=== PATIENT | male | born 1965 | race African-American/Black ===

== ENCOUNTER 2019-05-21 15:23 | Inpatient (IN) | payer MEDICAID ==
[~2019-05-21] VITALS: Ht 177.8 cm; Wt 84.8 kg
[2019-05-21 15:30] VITALS: BP_SYST 116
[2019-05-21] MEDS ORDERED: cefTRIAXone 1 GM in LIDOCAINE 1%, 20 ML MDV 2.1 ML IM ONE (16:00)
[2019-05-21] MEDS ORDERED: LIDOCAINE 1% 10 MG/ML, 20 ML MDV IJ ONE (16:00)
[2019-05-21] MEDS ORDERED: KETOROLAC TROMETHAMINE 60 MG/2 ML VIAL IM ONE (16:00)
[2019-05-21] MEDS ORDERED: ONDANSETRON HCL 4 MG/2 ML VIAL IVP ONE (16:15)
[2019-05-21] MEDS ORDERED: MORPHINE 2 MG/ML INJ. SYRINGE IVP ONE (16:15)
[2019-05-21] MEDS ORDERED: NS 1000 ML IV.SOLN IV ONE (16:15)
[2019-05-21] MEDS ORDERED: KETOROLAC TROMETHAMINE 30 MG VIAL IVP ONE (16:15)
[2019-05-21] MEDS ORDERED: INSULIN REGULAR, HUMAN 10 UNITS/0.1 ML INJ IVP ONE (16:15)
[2019-05-21] MEDS ORDERED: PIPERACILLIN/TAZO 3.38 GM in D5W 50 ML IV ONE (16:15)
[2019-05-21] MEDS ORDERED: PIPERACILLIN/TAZOBACTAM 3.375 GM/VIAL (ZOSYN) IV ONE (16:39)
[2019-05-21] MEDS ORDERED: ONDANSETRON HCL 4 MG/2 ML VIAL ONE (16:51)
[2019-05-21 17:45] LABS: BASOPHILS % (AUTO) 0.3 % (0.0-2.0); EOSINOPHILS % (AUTO) 0.1 % (0.0-4.0); HEMATOCRIT 48.5 % (36-54); LYMPHOCYTES # (AUTO) 1.9 K/uL (1.0-5.5); LYMPHOCYTES % (AUTO) 18.6 % (20.5-51.5); MEAN CORPUSCULAR HEMOGLOBIN 29 pg (27-31); MEAN CORPUSCULAR HGB CONC 33 % (32-36); MEAN CORPUSCULAR VOLUME 88 fL (79.0-98.0); MONOCYTES # (AUTO) 0.7 K/uL (0.0-1.0); MONOCYTES % (AUTO) 6.8 % (1.7-9.3); NEUTROPHILS # (AUTO) 7.7 K/uL (1.8-7.7); NEUTROPHILS % (AUTO) 74.2 % (40.0-70.0); PLATELET COUNT (AUTO) 267 K/uL (130-430); RED BLOOD CELL COUNT(AUTO) 5.53 MIL/uL (4.2-6.2); WHITE BLOOD COUNT (AUTO) 10.4 K/uL (4.8-10.8)
[2019-05-21 18:16] LABS: CALCIUM 9.1 mg/dL (8.4-11.0); CREATININE 2.03 mg/dL (0.55-1.30); POTASSIUM 4.9 mmol/L (3.5-5.1)
[2019-05-21] MEDS ORDERED: D5W 1,000 ML IV PRN (21:22)
[2019-05-21 21:30] VITALS: BP_SYST 102
[2019-05-21] MEDS ORDERED: DEXTROSE 50% JECT 50 ML DISP.SYRIN IVP PRN (21:30)
[2019-05-21] MEDS ORDERED: HYDROcodone/ACETAMIN 5-325 MG TAB (NORCO/ VICODIN) PO PRN (21:30)
[2019-05-21] MEDS ORDERED: LORazepam 2 MG/ML VIAL IVP PRN (21:30)
[2019-05-21] MEDS ORDERED: GLUCOSE 15 GM GEL (in 37.5 GM TUBE) PO PRN (21:30)
[2019-05-21] MEDS ORDERED: ACETAMINOPHEN 325 MG TABLET PO PRN (21:30)
[2019-05-21] MEDS ORDERED: HYDROcodone/ACETAMIN 10-325 MG TAB PO PRN (21:30)
[2019-05-21] MEDS ORDERED: ONDANSETRON HCL 4 MG/2 ML VIAL IVP PRN (21:30)
[2019-05-21] MEDS ORDERED: cefTRIAXone 1 GM IVPB PREMIX 50 ML IV ONE (22:54)
[2019-05-21] MEDS: NORMAL SALINE 5 ML DISP.SYRIN IVF SCH ×2 (23:30→23:33)
[2019-05-21] MEDS: cefTRIAXone 1 GM IVPB PREMIX 50 ML IV SCH (23:33)
[2019-05-21] MEDS: INSULIN REGULAR, HUMAN 100 UNITS/ML, 10 ML VIAL (humuLIN R) SUBCUT PRN (23:45)
[2019-05-22 03:00] VITALS: BP_SYST 132
[2019-05-22] MEDS: NORMAL SALINE 5 ML DISP.SYRIN IVF SCH ×6 (06:00→21:12)
[2019-05-22] MEDS: INSULIN REGULAR, HUMAN 100 UNITS/ML, 10 ML VIAL (humuLIN R) SUBCUT PRN ×2 (06:15→11:31)
[2019-05-22 07:51] LABS: BASOPHILS % (AUTO) 0.3 % (0.0-2.0); EOSINOPHILS # (AUTO) 0.1 K/uL (0.0-0.4); EOSINOPHILS % (AUTO) 0.7 % (0.0-4.0); HEMATOCRIT 41.9 % (36-54); HEMOGLOBIN 14.2 g/dL (14.0-18.0); LYMPHOCYTES # (AUTO) 2.3 K/uL (1.0-5.5); LYMPHOCYTES % (AUTO) 25.5 % (20.5-51.5); MEAN CORPUSCULAR HEMOGLOBIN 29 pg (27-31); MEAN CORPUSCULAR HGB CONC 34 % (32-36); MEAN CORPUSCULAR VOLUME 86 fL (79.0-98.0); MONOCYTES # (AUTO) 0.7 K/uL (0.0-1.0); NEUTROPHILS % (AUTO) 65.5 % (40.0-70.0); PLATELET COUNT (AUTO) 238 K/uL (130-430); RED BLOOD CELL COUNT(AUTO) 4.85 MIL/uL (4.2-6.2); RED CELL DISTRIBUTION WIDTH 12.8 % (9.0-15.0); WHITE BLOOD COUNT (AUTO) 9.2 K/uL (4.8-10.8)
[2019-05-22 07:54] LABS: CALCIUM 8.5 mg/dL (8.4-11.0); CREATININE 1.02 mg/dL (0.55-1.30); POTASSIUM 3.5 mmol/L (3.5-5.1)
[2019-05-22 08:00] VITALS: BP_SYST 156
[2019-05-22] MEDS ORDERED: metFORMIN HCL 500 MG TABLET PO SCH (08:00)
[2019-05-22] MEDS: PIOGLITAZONE HCL 15 MG TABLET PO SCH (08:05)
[2019-05-22] MEDS: LISINOPRIL 10 MG TABLET (PRINIVIL) PO SCH (08:34)
[2019-05-22] MEDS: HYDROCHLOROTHIAZIDE 25 MG TABLET (HCTZ) PO SCH (08:34)
[2019-05-22 12:46] VITALS: BP_SYST 146
[2019-05-22] MEDS: VANCOMYCIN HCL 1,000 MG in NS 250 ML IV SCH (14:30)
[2019-05-22] MEDS ORDERED: GLIMEPIRIDE 2 MG TABLET PO ONE (14:30)
[2019-05-22] MEDS ORDERED: DEXTROSE 50% JECT 50 ML DISP.SYRIN IVP PRN (14:45)
[2019-05-22 16:34] VITALS: BP_SYST 114
[2019-05-22] MEDS: metFORMIN HCL 500 MG TABLET PO SCH (17:16)
[2019-05-22] MEDS: INSULIN LISPRO SLIDING SCALE 100 UNITS/ML VIAL (humaLOG) SUBCUT PRN ×2 (17:18→21:11)
[2019-05-22 19:15] VITALS: BP_SYST 119
[2019-05-22] MEDS: cefTRIAXone 1 GM IVPB PREMIX 50 ML IV SCH (21:07)
[2019-05-23 00:28] VITALS: BP_SYST 113
[2019-05-23] MEDS: VANCOMYCIN HCL 1,000 MG in NS 250 ML IV SCH ×2 (01:56→13:07)
[2019-05-23 05:35] LABS: BASOPHILS % (AUTO) 0.2 % (0.0-2.0); EOSINOPHILS # (AUTO) 0.1 K/uL (0.0-0.4); HEMATOCRIT 41.6 % (36-54); HEMOGLOBIN 14.1 g/dL (14.0-18.0); LYMPHOCYTES # (AUTO) 2.9 K/uL (1.0-5.5); LYMPHOCYTES % (AUTO) 38.7 % (20.5-51.5); MEAN CORPUSCULAR HEMOGLOBIN 29 pg (27-31); MEAN CORPUSCULAR HGB CONC 34 % (32-36); MEAN CORPUSCULAR VOLUME 86 fL (79.0-98.0); MONOCYTES # (AUTO) 0.6 K/uL (0.0-1.0); MONOCYTES % (AUTO) 7.5 % (1.7-9.3); NEUTROPHILS % (AUTO) 52.6 % (40.0-70.0); PLATELET COUNT (AUTO) 249 K/uL (130-430); RED BLOOD CELL COUNT(AUTO) 4.83 MIL/uL (4.2-6.2); RED CELL DISTRIBUTION WIDTH 12.5 % (9.0-15.0); WHITE BLOOD COUNT (AUTO) 7.5 K/uL (4.8-10.8)
[2019-05-23 05:45] LABS: ALBUMIN 2.6 g/dL (3.4-4.8); C-REACTIVE PROTEIN QUANT 4.2 mg/dL (0-0.5); CALCIUM 8.7 mg/dL (8.4-11.0); CREATININE 1.07 mg/dL (0.55-1.30); PHOSPHORUS 3.3 mg/dL (2.7-4.5); POTASSIUM 3.7 mmol/L (3.5-5.1); TOTAL BILIRUBIN 0.5 mg/dL (0.0-1.0)
[2019-05-23] MEDS: NORMAL SALINE 5 ML DISP.SYRIN IVF SCH ×6 (06:00→21:13)
[2019-05-23] MEDS: GLIMEPIRIDE 2 MG TABLET PO SCH (06:08)
[2019-05-23 07:48] LABS: ERYTHROCYTE SEDIMENTATION RATE 51 MM/HR (0-15)
[2019-05-23 07:53] VITALS: BP_SYST 122
[2019-05-23] MEDS: LISINOPRIL 10 MG TABLET (PRINIVIL) PO SCH (08:19)
[2019-05-23] MEDS: HYDROCHLOROTHIAZIDE 25 MG TABLET (HCTZ) PO SCH (08:19)
[2019-05-23] MEDS: metFORMIN HCL 500 MG TABLET PO SCH ×2 (08:19→17:30)
[2019-05-23] MEDS: PIOGLITAZONE HCL 15 MG TABLET PO SCH (08:19)
[2019-05-23 11:28] VITALS: BP_SYST 134
[2019-05-23] MEDS: INSULIN LISPRO SLIDING SCALE 100 UNITS/ML VIAL (humaLOG) SUBCUT PRN ×3 (12:04→21:22)
[2019-05-23 14:46] LABS: INR 0.9 (0.80-1.20); PROTHROMBIN TIME 9.2 SECS (9.5-12.5)
[2019-05-23 15:30] VITALS: BP_SYST 121
[2019-05-23 20:00] VITALS: BP_SYST 108
[2019-05-23] MEDS: cefTRIAXone 1 GM IVPB PREMIX 50 ML IV SCH (21:12)
[2019-05-24 00:50] VITALS: BP_SYST 110
[2019-05-24] MEDS: VANCOMYCIN HCL 1,000 MG in NS 250 ML IV SCH ×3 (01:53→21:11)
[2019-05-24] MEDS: NORMAL SALINE 5 ML DISP.SYRIN IVF SCH ×6 (06:00→21:11)
[2019-05-24] MEDS: GLIMEPIRIDE 2 MG TABLET PO SCH (06:36)
[2019-05-24] MEDS: INSULIN LISPRO SLIDING SCALE 100 UNITS/ML VIAL (humaLOG) SUBCUT PRN ×3 (06:38→20:27)
[2019-05-24 07:20] LABS: BASOPHILS % (AUTO) 0.2 % (0.0-2.0); EOSINOPHILS # (AUTO) 0.1 K/uL (0.0-0.4); EOSINOPHILS % (AUTO) 1.2 % (0.0-4.0); HEMATOCRIT 41.4 % (36-54); HEMOGLOBIN 13.9 g/dL (14.0-18.0); LYMPHOCYTES # (AUTO) 2.4 K/uL (1.0-5.5); LYMPHOCYTES % (AUTO) 38.3 % (20.5-51.5); MEAN CORPUSCULAR HEMOGLOBIN 29 pg (27-31); MEAN CORPUSCULAR HGB CONC 34 % (32-36); MEAN CORPUSCULAR VOLUME 86 fL (79.0-98.0); MONOCYTES # (AUTO) 0.5 K/uL (0.0-1.0); MONOCYTES % (AUTO) 8.5 % (1.7-9.3); NEUTROPHILS # (AUTO) 3.2 K/uL (1.8-7.7); NEUTROPHILS % (AUTO) 51.8 % (40.0-70.0); PLATELET COUNT (AUTO) 276 K/uL (130-430); RED CELL DISTRIBUTION WIDTH 12.5 % (9.0-15.0); WHITE BLOOD COUNT (AUTO) 6.2 K/uL (4.8-10.8)
[2019-05-24 07:25] LABS: C-REACTIVE PROTEIN QUANT 1.9 mg/dL (0-0.5); CREATININE 1.04 mg/dL (0.55-1.30); POTASSIUM 3.9 mmol/L (3.5-5.1)
[2019-05-24] MEDS: PIOGLITAZONE HCL 15 MG TABLET PO SCH (08:00)
[2019-05-24] MEDS: metFORMIN HCL 500 MG TABLET PO SCH ×2 (08:00→17:10)
[2019-05-24] MEDS: HYDROCHLOROTHIAZIDE 25 MG TABLET (HCTZ) PO SCH (08:01)
[2019-05-24] MEDS: LISINOPRIL 10 MG TABLET (PRINIVIL) PO SCH (08:01)
[2019-05-24 08:38] LABS: ERYTHROCYTE SEDIMENTATION RATE 46 MM/HR (0-15)
[2019-05-24 12:34] VITALS: BP_SYST 127
[2019-05-24] MEDS: SILVER 44.4 ML GEL.ER.ML. TP SCH (13:50)
[2019-05-24 16:19] VITALS: BP_SYST 121
[2019-05-24 20:00] VITALS: BP_SYST 118
[2019-05-24] MEDS: cefTRIAXone 1 GM IVPB PREMIX 50 ML IV SCH (20:27)
[2019-05-25] VITALS: BP_SYST 145
[2019-05-25] MEDS: GLIMEPIRIDE 2 MG TABLET PO SCH (05:58)
[2019-05-25] MEDS: NORMAL SALINE 5 ML DISP.SYRIN IVF SCH ×4 (05:58→21:50)
[2019-05-25] MEDS: INSULIN LISPRO SLIDING SCALE 100 UNITS/ML VIAL (humaLOG) SUBCUT PRN ×3 (05:59→21:52)
[2019-05-25] MEDS: VANCOMYCIN HCL 1,000 MG in NS 250 ML IV SCH ×3 (05:59→21:46)
[2019-05-25 07:48] LABS: CALCIUM 9.3 mg/dL (8.4-11.0); CREATININE 0.99 mg/dL (0.55-1.30); POTASSIUM 3.9 mmol/L (3.5-5.1)
[2019-05-25 07:50] LABS: BASOPHILS % (AUTO) 0.5 % (0.0-2.0); EOSINOPHILS % (AUTO) 0.8 % (0.0-4.0); HEMOGLOBIN 13.6 g/dL (14.0-18.0); LYMPHOCYTES % (AUTO) 32.9 % (20.5-51.5); MEAN CORPUSCULAR HEMOGLOBIN 30 pg (27-31); MEAN CORPUSCULAR HGB CONC 34 % (32-36); MEAN CORPUSCULAR VOLUME 87 fL (79.0-98.0); MONOCYTES # (AUTO) 0.4 K/uL (0.0-1.0); MONOCYTES % (AUTO) 7.3 % (1.7-9.3); NEUTROPHILS # (AUTO) 3.5 K/uL (1.8-7.7); NEUTROPHILS % (AUTO) 58.5 % (40.0-70.0); PLATELET COUNT (AUTO) 275 K/uL (130-430); RED BLOOD CELL COUNT(AUTO) 4.59 MIL/uL (4.2-6.2); RED CELL DISTRIBUTION WIDTH 12.4 % (9.0-15.0)
[2019-05-25 08:06] LABS: C-REACTIVE PROTEIN QUANT 1.1 mg/dL (0-0.5)
[2019-05-25 08:27] LABS: ERYTHROCYTE SEDIMENTATION RATE 49 MM/HR (0-15)
[2019-05-25] MEDS: LISINOPRIL 10 MG TABLET (PRINIVIL) PO SCH (08:40)
[2019-05-25] MEDS: HYDROCHLOROTHIAZIDE 25 MG TABLET (HCTZ) PO SCH (08:40)
[2019-05-25] MEDS: metFORMIN HCL 500 MG TABLET PO SCH ×2 (08:41→17:28)
[2019-05-25] MEDS: PIOGLITAZONE HCL 15 MG TABLET PO SCH (08:41)
[2019-05-25] MEDS: SILVER 44.4 ML GEL.ER.ML. TP SCH (08:41)
[2019-05-25 08:42] VITALS: BP_SYST 152
[2019-05-25 12:36] VITALS: BP_SYST 130
[2019-05-25 17:05] VITALS: BP_SYST 127; BP_SYST 136
[2019-05-25 20:00] VITALS: BP_SYST 133
[2019-05-25] MEDS: cefTRIAXone 1 GM IVPB PREMIX 50 ML IV SCH (20:50)
[2019-05-26 00:21] VITALS: BP_SYST 163
[2019-05-26 00:36] VITALS: BP_SYST 148
[2019-05-26] MEDS: VANCOMYCIN HCL 1,000 MG in NS 250 ML IV SCH ×2 (06:06→13:18)
[2019-05-26] MEDS: NORMAL SALINE 5 ML DISP.SYRIN IVF SCH ×2 (06:07→13:18)
[2019-05-26] MEDS: GLIMEPIRIDE 2 MG TABLET PO SCH (06:07)
[2019-05-26] MEDS: INSULIN LISPRO SLIDING SCALE 100 UNITS/ML VIAL (humaLOG) SUBCUT PRN ×2 (06:12→11:36)
[2019-05-26 06:56] LABS: BASOPHILS % (AUTO) 0.4 % (0.0-2.0); EOSINOPHILS # (AUTO) 0.1 K/uL (0.0-0.4); EOSINOPHILS % (AUTO) 1.1 % (0.0-4.0); HEMOGLOBIN 13.9 g/dL (14.0-18.0); LYMPHOCYTES % (AUTO) 33.3 % (20.5-51.5); MEAN CORPUSCULAR HEMOGLOBIN 30 pg (27-31); MEAN CORPUSCULAR HGB CONC 34 % (32-36); MEAN CORPUSCULAR VOLUME 87 fL (79.0-98.0); MONOCYTES # (AUTO) 0.5 K/uL (0.0-1.0); MONOCYTES % (AUTO) 8.6 % (1.7-9.3); NEUTROPHILS # (AUTO) 3.3 K/uL (1.8-7.7); NEUTROPHILS % (AUTO) 56.6 % (40.0-70.0); PLATELET COUNT (AUTO) 291 K/uL (130-430); RED BLOOD CELL COUNT(AUTO) 4.71 MIL/uL (4.2-6.2); RED CELL DISTRIBUTION WIDTH 12.3 % (9.0-15.0); WHITE BLOOD COUNT (AUTO) 5.9 K/uL (4.8-10.8)
[2019-05-26 07:00] LABS: C-REACTIVE PROTEIN QUANT 0.7 mg/dL (0-0.5); CALCIUM 9.7 mg/dL (8.4-11.0); CREATININE 0.98 mg/dL (0.55-1.30); POTASSIUM 4.1 mmol/L (3.5-5.1)
[2019-05-26 08:02] VITALS: BP_SYST 143
[2019-05-26 08:19] LABS: ERYTHROCYTE SEDIMENTATION RATE 38 MM/HR (0-15)
[2019-05-26] MEDS: HYDROCHLOROTHIAZIDE 25 MG TABLET (HCTZ) PO SCH (08:26)
[2019-05-26] MEDS: SILVER 44.4 ML GEL.ER.ML. TP SCH (08:26)
[2019-05-26] MEDS: PIOGLITAZONE HCL 15 MG TABLET PO SCH (08:27)
[2019-05-26] MEDS: metFORMIN HCL 500 MG TABLET PO SCH (08:27)
[2019-05-26] MEDS: LISINOPRIL 10 MG TABLET (PRINIVIL) PO SCH (08:27)
[2019-05-26 11:22] VITALS: BP_SYST 156
== END 2019-05-26 14:55 | disposition left against medical advice (07) | DRG 344 ==
LOC: SED 15:23 → SMU 19:24
PROVIDERS: ADMIT Preventive Medicine Preventive Medicine/Occupational Environmental Medicine; ATTEND Preventive Medicine Preventive Medicine/Occupational Environmental Medicine
PROC: 0X9J0ZZ Drainage of Right Hand, Open Approach (ICD-10-PCS; principal; 2019-05-21)
PROC: 02HV33Z Insertion of Infusion Device into Superior Vena Cava, Percutaneous Approach (ICD-10-PCS; 2019-05-21)
DX: M86.8X4 Other osteomyelitis, hand (principal); N17.0 Acute kidney failure with tubular necrosis; W57.XXXA Bitten or stung by nonvenomous insect and other nonvenomous arthropods, initial encounter; E11.65 Type 2 diabetes mellitus with hyperglycemia; E87.1 Hypo-osmolality and hyponatremia; L03.011 Cellulitis of right finger; L02.511 Cutaneous abscess of right hand; E86.0 Dehydration; B95.62 Methicillin resistant Staphylococcus aureus infection as the cause of diseases classified elsewhere; S60.361A Insect bite (nonvenomous) of right thumb, initial encounter; Y93.9 Activity, unspecified; Y92.89 Other specified places as the place of occurrence of the external cause; Y99.8 Other external cause status; Z79.84 Long term (current) use of oral hypoglycemic drugs; Z83.3 Family history of diabetes mellitus; Z87.891 Personal history of nicotine dependence; E44.0 Moderate protein-calorie malnutrition; B95.7 Other staphylococcus as the cause of diseases classified elsewhere; Z16.30 Resistance to unspecified antimicrobial drugs
CPT/HCPCS: 36415; 71045; 73140-TC; 73221; 80048; 80053; 80202-TC; 82009-TC; 82962; 83036; 83605; 83735-TC; 84100-TC; 85025; 85610-TC; 85651-TC; 85730-TC; 86140; 87040-TC; 87070-TC; 87186-TC; 96365; 96375; 99285; A6261; C1751; J0696; J1815; J1885; J2001; J2270; J2405; J2543; J3370; J7030; J7050

== ENCOUNTER 2019-05-27 17:22 | Inpatient (IN) | payer MEDICAID, OTHER ==
[~2019-05-27] VITALS: Ht 177.8 cm; Wt 88.0 kg
[2019-05-27 17:33] VITALS: BP_SYST 162
--- NOTE | 2019-05-27 17:37 | NUR ---
Patient to ER bed 05 to gown for evaluation. Side rails up.
--- NOTE | 2019-05-27 17:45 | NUR ---
Patient came into ED due to right thumb pain. Patient states that he came into the ED a week ago but signed out AMA. Now he's back because the pain and swelling has not gone away. Patient has hx of DM, and HT. Pt is A&Ox4. Pt denies SOB. Patient reports Nausea, denies V/D. Will continue to monitor.
--- NOTE | 2019-05-27 17:55 | NUR ---
OWEN Tom at bedside examining patient.
[2019-05-27] MEDS ORDERED: hydrALAZINE HCL 20 MG/ML VIAL IVP ONE (18:15)
[2019-05-27] MEDS ORDERED: VANCOMYCIN HCL 1,000 MG in NS 250 ML IV ONE (18:15)
[2019-05-27] MEDS ORDERED: PIPERACILLIN/TAZO 3.375 GM in NS 50 ML IV ONE (18:15)
[2019-05-27] MEDS ORDERED: NACL 0.9% 1,000 ML IV ONE ×2 (18:15→18:45)
[2019-05-27] MEDS ORDERED: INSULIN REGULAR, HUMAN 100 UNITS/ML, 10 ML VIAL SUBCUT ONE (18:15)
[2019-05-27] MEDS ORDERED: VANCOMYCIN HCL 1000 MG/VIAL IV ONE (18:25)
[2019-05-27] MEDS ORDERED: PIPERACILLIN/TAZOBACTAM 3.375 GM/VIAL (ZOSYN) IV ONE (18:25)
[2019-05-27 18:27] LABS: ALBUMIN 3.4 g/dL (3.4-4.8); CALCIUM 9.6 mg/dL (8.4-11.0); CREATININE 1.59 mg/dL (0.55-1.30); POTASSIUM 4.4 mmol/L (3.5-5.1); TOTAL BILIRUBIN 0.3 mg/dL (0.0-1.0)
[2019-05-27] MEDS ORDERED: INSULIN REGULAR, HUMAN 10 UNITS/0.1 ML INJ ONE (18:27)
[2019-05-27 18:29] LABS: BASOPHILS % (AUTO) 0.4 % (0.0-2.0); EOSINOPHILS # (AUTO) 0.1 K/uL (0.0-0.4); EOSINOPHILS % (AUTO) 0.8 % (0.0-4.0); HEMATOCRIT 39.1 % (36-54); HEMOGLOBIN 13.1 g/dL (14.0-18.0); LYMPHOCYTES # (AUTO) 2.1 K/uL (1.0-5.5); LYMPHOCYTES % (AUTO) 29.5 % (20.5-51.5); MEAN CORPUSCULAR HEMOGLOBIN 30 pg (27-31); MEAN CORPUSCULAR HGB CONC 34 % (32-36); MEAN CORPUSCULAR VOLUME 88 fL (79.0-98.0); MONOCYTES # (AUTO) 0.6 K/uL (0.0-1.0); MONOCYTES % (AUTO) 8.7 % (1.7-9.3); NEUTROPHILS # (AUTO) 4.3 K/uL (1.8-7.7); NEUTROPHILS % (AUTO) 60.6 % (40.0-70.0); PLATELET COUNT (AUTO) 319 K/uL (130-430); RED BLOOD CELL COUNT(AUTO) 4.44 MIL/uL (4.2-6.2); RED CELL DISTRIBUTION WIDTH 12.8 % (9.0-15.0); WHITE BLOOD COUNT (AUTO) 7.1 K/uL (4.8-10.8)
[2019-05-27 18:32] LABS: BILIRUBIN,URINE NEGATIVE (NEGATIVE); BLOOD, URINE NEGATIVE (NEGATIVE); CLARITY/URINE CLEAR (CLEAR); COLOR,URINE YELLOW (YELLOW); GLUCOSE,URINE 3+ (NEGATIVE); KETONES,URINE NEGATIVE (NEGATIVE); LEUKOCYTE ESTERASE ,URINE NEGATIVE (NEGATIVE); NITRITE, URINE NEGATIVE (NEGATIVE); PH,URINE 5.5 (5.0-8.0); PROTEIN URINE TRACE (NEGATIVE); UROBILINOGEN,URINE 0.2 (0.2-1.0)
[2019-05-27] MEDS ORDERED: cloNIDine HCL 0.1 MG TABLET PO PRN (18:45)
[2019-05-27] MEDS ORDERED: NS 500 ML IV ONE (18:45)
[2019-05-27 18:47] LABS: BARBITURATE, URINE NEGATIVE (NEG <=200); BENZODIAZEPINE, URINE NEGATIVE (NEG <=150); COCAINE, URINE NEGATIVE (NEG <=150); METHAMPHETAMINES SCREEN,URINE POSITIVE (NEG <=500); URINE AMPHETAMINE POSITIVE (NEG <=500); URINE METHADONE NEGATIVE (NEG <=200)
[2019-05-27 18:48] LABS: CANNABINOID, URINE POSITIVE (NEG <=50); OPIATE, URINE NEGATIVE (NEG <=100); PHENCYCLIDINE SCREEN,URINE NEGATIVE (NEG <=25); UR TRICYCLIC ANTIDEPRESSANTS NEGATIVE (NEG <=300); URINE OXYCODONE SCREEN NEGATIVE (NEG <=100); URINE PROPOXYPHENE SCREEN NEGATIVE (NEG <=300)
[2019-05-27 18:50] LABS: BACTERIA,URINE FEW /HPF (None Seen); FINE GRANULAR CASTS,URINE 0-10 /LPF (None Seen); MUCUS,URINE 1+ /LPF (None Seen); RBC,URINE 0-3 /HPF (0-3); WBC,URINE 0-3 /HPF (0-3)
--- NOTE | 2019-05-27 18:51 | NUR ---
Medication reconciliation completed with information provided by patient and his girlfriend. Any prior medication reconciliation on file was reviewed and corrected.
--- NOTE | 2019-05-27 18:53 | NUR ---
Patient will be admitted to care of Dr. Abbott. Admitted to telemetry unit. Will go to room 133A. Belongings list completed. Summary report printed. Report will be given at bedside.
--- NOTE | 2019-05-27 19:15 | NUR ---
Patient will be admitted to care of Dr. Abbott. Admitted to Tele unit. Will go to room 133a. Belongings list completed. Summary report printed. Report to be given at bedside.
--- NOTE | 2019-05-27 19:20 | NUR ---
ADMISSION NOTES, RECEIVED PT FROM E.R. PT IS AAOX4, C/O OF 12/22 ON R. THUMB. PT ADMITTED WITH DIAGNOSIS OF SEPSIS. PT EDUCATED ON THE USE OF CALL LIGHT, TV AND BED CONTROLS. ENCOURAGED TO CALL NURSES FOR ASSIST , PAIN MEDS AND ANY CONCERNS.
--- NOTE | 2019-05-27 19:20 | NUR ---
Patient transferred via gurney to room 133A. Accompanied by 2 ed rn's. Report given to Zaid at bedside.
--- NOTE | 2019-05-27 19:30 | NUR ---
Opening notes Received report. Patient is resting comfortably in bed. No signs of distress noted. Breathing even and unlabored. IV patent and intact, infusing fluids. Oriented patient to room and call light. No needs at this time. Call light with the patient. Safety precautions in place.
[2019-05-27 19:46] VITALS: BP_SYST 148
[2019-05-27] MEDS: NACL 0.9% 1,000 ML IV SCH ×2 (21:00→23:10)
[2019-05-27] MEDS ORDERED: ACETAMINOPHEN 325 MG TABLET PO PRN (21:00)
[2019-05-27] MEDS ORDERED: ONDANSETRON HCL 4 MG/2 ML VIAL IVP PRN (21:00)
[2019-05-27] MEDS ORDERED: HYDROcodone/ACETAMIN 5-325 MG TAB (NORCO/ VICODIN) PO PRN (21:00)
[2019-05-27] MEDS ORDERED: TEMAZEPAM 15 MG CAPSULE PO PRN (21:15)
[2019-05-27] MEDS ORDERED: cefTRIAXone 1 GM IVPB PREMIX 50 ML IV ONE (21:50)
[2019-05-27] MEDS ORDERED: CLINDAMYCIN 600 mg/50mL D5W 100 ML IV ONE (21:51)
--- NOTE | 2019-05-27 21:55 | NUR ---
BS 139 No insulin coverage necessary. Provided patient with ice water. No other needs at this time. Call light with the patient. Safety precautions in place.
--- NOTE | 2019-05-27 22:17 | NUR ---
Consultation Paged Reason for Consultation: Sepsis Was consult called: Y Person who was notified: Linda Consulting Physician: Navid Garcia [employer] Ordering Physician: Dr. Abbott
[2019-05-27] MEDS ORDERED: cefTRIAXone 1 GM in D5W 50 ML IV SCH (23:00)
[2019-05-27] MEDS: CLINDAMYCIN 600 MG in D5W 50 ML IV SCH (23:11)
--- NOTE | 2019-05-28 00:10 | NUR ---
Photographs of thumb taken and placed in chart. Wrapped with gauze dressing per patient request. Provided patient with ice water. No other needs at this time. Call light with the patient. Safety precautions in place.
[2019-05-28 00:36] VITALS: BP_SYST 147
--- NOTE | 2019-05-28 02:58 | NUR ---
Sleeping No signs of distress noted. Breathing even and unlabored. IVF infusing well. Call light with the patient. Safety precautions in place.
--- NOTE | 2019-05-28 04:56 | NUR ---
Sleeping No signs of distress noted. Breathing even and unlabored. Call light with the patient. Safety precautions in place.
[2019-05-28] MEDS: CLINDAMYCIN 600 MG in D5W 50 ML IV SCH (06:26)
[2019-05-28] MEDS: INSULIN REGULAR, HUMAN 100 UNITS/ML, 10 ML VIAL (humuLIN R) SUBCUT PRN ×4 (06:31→20:47)
--- NOTE | 2019-05-28 06:54 | NUR ---
Closing notes Patient awake in bed, talking on phone. No signs of distress noted. Breathing even and unlabored. IV patent and intact, infusing fluids. BS 164, insulin given per sliding scale. All needs met throughout the shift. call light with the patient. Safety precautions in place. Will endorse care to day shift RN.
--- NOTE | 2019-05-28 07:20 | NUR ---
AM ROUNDS: PATIENT AWAKE DURING ROUNDS. DENIES ANY PAIN. CALL LIGHT WITH IN REACH. BED LOCKED AT LOWEST POSITION. CONTINUE TO MONITOR.
[2019-05-28 07:47] LABS: BASOPHILS % (AUTO) 0.5 % (0.0-2.0); EOSINOPHILS # (AUTO) 0.1 K/uL (0.0-0.4); EOSINOPHILS % (AUTO) 1.2 % (0.0-4.0); HEMATOCRIT 37.6 % (36-54); HEMOGLOBIN 12.6 g/dL (14.0-18.0); MEAN CORPUSCULAR HEMOGLOBIN 29 pg (27-31); MEAN CORPUSCULAR HGB CONC 33 % (32-36); MEAN CORPUSCULAR VOLUME 87 fL (79.0-98.0); MONOCYTES # (AUTO) 0.5 K/uL (0.0-1.0); MONOCYTES % (AUTO) 7.4 % (1.7-9.3); NEUTROPHILS # (AUTO) 3.9 K/uL (1.8-7.7); NEUTROPHILS % (AUTO) 59.9 % (40.0-70.0); PLATELET COUNT (AUTO) 334 K/uL (130-430); RED BLOOD CELL COUNT(AUTO) 4.31 MIL/uL (4.2-6.2); RED CELL DISTRIBUTION WIDTH 12.6 % (9.0-15.0); WHITE BLOOD COUNT (AUTO) 6.6 K/uL (4.8-10.8)
--- NOTE | 2019-05-28 08:02 | NUR ---
CONTACT: ON CONTACT ISOLATION PRECAUTION FOR MRSA RIGHT THUMB WOUND.
[2019-05-28 08:19] LABS: ALBUMIN 2.9 g/dL (3.4-4.8); CREATININE 1.05 mg/dL (0.55-1.30); TOTAL BILIRUBIN 0.3 mg/dL (0.0-1.0)
[2019-05-28 10:10] VITALS: BP_SYST 150
[2019-05-28] MEDS ORDERED: CARVEDILOL 12.5 MG TABLET (COREG) PO ONE (10:45)
--- NOTE | 2019-05-28 11:16 | NUR ---
MD ROUNDS; SPOKE WITH DR Kevin TIDWELL EARLIER AND INFORMED DR SIMMS REGARDING ORDERS TO CONTINUE VANCOMYCIN DAILY X 6 WEEKS PER PHARMACY DOSE.ORDERS CARRIED OUT.
--- NOTE | 2019-05-28 11:17 | NUR ---
BLOOD SUGAR: BLOOD USDRF=626UZ/DL,HUMULIN R 2 UNITS SUBQ GIVEN PER SLIDING SCALE. NO ADVERSE REACTIONS NOTED.
--- NOTE | 2019-05-28 11:20 | NUR ---
DC TELE: DC TELE AND DOWNGRADED PATIENT TO MEDICAL SURGICAL UNIT ORDERED.
[2019-05-28] MEDS: NACL 0.9% 1,000 ML IV SCH ×2 (11:22→23:29)
[2019-05-28 12:07] LABS: PROTHROMBIN TIME 9.9 SECS (9.5-12.5)
[2019-05-28] MEDS: VANCOMYCIN HCL 1,000 MG in NS 250 ML IV SCH ×2 (12:37→18:22)
--- NOTE | 2019-05-28 13:23 | NUR ---
SS NOTE: TANBARK PEELER met with patient at bedside for DCP and positive tox screen. Pt is a 54 year old male who came in via ER. Pt was a pt in [facility] prior to this admission but signed AMA on 05/26. Pt states he usually stays around the [place] and was on his way there but did not feel well prompting him to seek medical attention. Pt states he knew he should not have left AMA, and states he is aware now how dangerous his actions were. Pt states he stays at his family friend's house, Karla Alexander @ [phone], in [place] and wishes to go back there when discharged. Pt states he utilizes [facility] in [place] for medical needs. Pt states he smoked meth when he left the hospital but denies abusing it. Pt states he has a history of cocaine use for 23 years and went cold turkey in 2013. Pt states he smokes marijuana 4x/month and gets supplies from his friends and states he drinks alcohol occasionally. Pt denies any history of mental health currently and in the past and denies detox treatments/substance abuse. Pt states he has 2 adult children and 3 underage children, ages 11, 9 and 7 but does not have custody over them. Pt states his children lives in [place] and their mom has custody of them. Pt denies any income. SS will remain available for support and follow up as needed.
[2019-05-28 14:33] VITALS: BP_SYST 146
--- NOTE | 2019-05-28 14:40 | NUR ---
RN ROUNDS: AWAKE DURING ROUNDS. NO COMPLAINED MADE.
--- NOTE | 2019-05-28 16:00 | NUR ---
WOUND DRESSING: CLEANSE NS RIGHT THUMB,PAT DRY,MEASUREMENT OF OSTEOMYELITIS DONE-SEE MEDITECH. COVER FOAM DRESSING AND WRAPPED WITH KERLIX.WCN TO EVALUATE THE RIGHT THUMB PER DR SIMMS.
[2019-05-28 16:36] VITALS: BP_SYST 148
--- NOTE | 2019-05-28 17:19 | NUR ---
Blood Sugar: Blood yrcoz=490xz/dl Humulin R 2 units subq given per sliding scale. No adverse reactions.
--- NOTE | 2019-05-28 18:37 | NUR ---
CLOSING NOTES: IV VANCOMYCIN GIVEN SCHEDULED. NO DISTRESS. CALL LIGHT WITH IN REACH. BED LOCKED AT LOWEST POSITION. CONTINUE TO MONITOR.
--- NOTE | 2019-05-28 19:40 | NUR ---
Initial Note Received patient awake, alert and oriented. No SOB noted. Denies any pain or n/v at this time. IVF infusing. SCDs off at this time per patient's request. VS stable. Patient is ambulatory with steady gait. Patient is getting a PICC line tonight. Right thumb dressing CDI. He said that he will follow what the MD says at this time. Needs attended. Call light within reach. Bed alarm off per patient's request. Bed at lowest position at all times. Care and monitoring will be provided per protocol. Needs attended. Kept warm and comfortable.
[2019-05-28 20:00] VITALS: BP_SYST 139
--- NOTE | 2019-05-28 20:00 | NUR ---
PICC RN PICC RN Madhu at the bedside. Time out prior to procedure done.
[2019-05-28] MEDS: CARVEDILOL 12.5 MG TABLET (COREG) PO SCH (20:45)
--- NOTE | 2019-05-28 20:45 | NUR ---
RN Note Due meds given, tolerated well. Given a sandwich and juice as requested. No other complaints. Ambulated to the bathroom and back to bed with steady gait.
--- NOTE | 2019-05-28 21:20 | NUR ---
PICC ok to use PICC CJ Leung made me aware that CXR was done and PICC is ok to use.
--- NOTE | 2019-05-28 22:15 | NUR ---
RN Note Patient asleep but easily arousable. No complaints at this time.
--- NOTE | 2019-05-29 | NUR ---
RN Note Patient sleeping at this time. Repositions self. No SOB or grimacing noted.
[2019-05-29 00:18] VITALS: BP_SYST 150
[2019-05-29] MEDS: VANCOMYCIN HCL 1,000 MG in NS 250 ML IV SCH ×3 (02:55→20:37)
--- NOTE | 2019-05-29 03:00 | NUR ---
RN Note Asleep but easily arousable. Ambulated to the bathroom and back in bed with steady gait. IV antibiotic given as scheduled. No complaints.
[2019-05-29] MEDS: INSULIN REGULAR, HUMAN 100 UNITS/ML, 10 ML VIAL (humuLIN R) SUBCUT PRN ×4 (06:13→20:46)
--- NOTE | 2019-05-29 06:27 | NUR ---
End Note Afebrile. VS stable. Visitor at the bedside. Denies any pain, SOB or n/v throughout the night. Ambulates well with steady gait. IVF infusing. Dressing on right hand CDI. PICC line on SALLY dressing CDI. Flushed with NS both ports. IVF infusing. Refused SCDs and bed alarm since patient is ambulating most of the time. Latest blood sugar was 231, coverage was given. Vanco trough at 10 am. Needs attended. Call light within reach. Bed at lowest position at all times. Care and monitoring provided per protocol. Kept warm and comfortable.
[2019-05-29 08:00] VITALS: BP_SYST 126
--- NOTE | 2019-05-29 08:00 | NUR ---
initial notes rec patient awake alert with iv on the l arm picc line in placed no osb noted. bed to the lowest position and side rails up and locked. denies pain. no sob noted. call light within reached.
[2019-05-29] MEDS: CARVEDILOL 12.5 MG TABLET (COREG) PO SCH ×2 (11:59→20:40)
--- NOTE | 2019-05-29 12:00 | NUR ---
rounds no hypo hyperglycmeic reaction noted. resting comfortably.call light within reached.
--- NOTE | 2019-05-29 12:22 | NUR ---
DC PLANNING: CM SPOKE WITH PATIENT AND PATIENT'S MOTHER (HOLA BOLIVAR) @ BEDSIDE REGARDING DC PLANNING. PATIENT WAS AGREEABLE TO SNF FOR IV ABX. PATIENT'S MOTHER STATED SHE WILL BE TAKING PATIENT WITH HER BACK TO [facility] AFTER IV ABX TREATMENT AT SNF. PATIENT'S MOTHER: HOLA BOLIVAR CELL NUMBER: HOME PHONE:
--- NOTE | 2019-05-29 14:08 | NUR ---
WOUND EVALUATION: Wound Consult received from Dr. Abbott. Thank you, Dr. Abbott, for the consult. Patient received in a Milly Bed with a mattress, awake, alert, and oriented. Patient is unable to turn independently. Sammy Score is a 20. Past Medical History: Diabetes Mellitus, left hand surgery. Recent Labs: WBC 6.6, RBC 4.31, hemoglobin 12.6, hematocrit 37.6, BUN 24, creatinine 1.05, GFR 95, glucose 191, albumin 2.9. Intrinsic factors that delay wound healing: Diabetes Mellitus. Extrinsic factors that delay wound healing: Decreased mobility. Microbiology: Blood culture results 2 in progress. Urine culture results negative. MRSA screen results in progress. Wound Assessment: 1. Right Thumb: Healing abscess on medial aspect, present on admission. I&D performed on right thumb abscess site in ER by Dr. An on a prior admission. No visible wound bed presently. No odor, no drainage. Skin around cuticle has yellow discoloration. Lateral aspect of thumb has dark discoloration. Medial palmar aspect of thumb has soft, wrinkly skin (will continue to monitor for drainage or further abscess formation. Recommend: Cover with foam dressing for protection, cut to size. Wrap with Donna wrap. Secure with tape. Perform site care daily, and as needed for dressing soiling or dislodgement. IV Vancomycin will be primary treatment. Contact wound care nurse if site opens or drains. Also recommend: Encourage and assist patient as needed with repositioning every 2 hours with pillow support, and off-load pressure areas with pillows for pressure re-distribution. Offload, elevate and float bilateral heels with pillows. Perform skin care and monitor skin integrity Q shift.
[2019-05-29 14:13] VITALS: BP_SYST 143
[2019-05-29 17:06] VITALS: BP_SYST 131
[2019-05-29] MEDS: NACL 0.9% 1,000 ML IV SCH (18:22)
--- NOTE | 2019-05-29 18:30 | NUR ---
closing notes no hypo hyperglycemic reaction noted. bed to the lowest position. ambulates at bedside. call light within reached.
--- NOTE | 2019-05-29 19:15 | NUR ---
initial notes: pt is on bed alert, awake, oriented x 4. no complain of pain.no sob. not distress. stable. pt has ivf infusing to left picc line 2 ports- dressing is dry clean and intact, patent. no sign of infiltration. pt has dressing to right thumb-dressing is clean dry and intact.explained to pt plan of care for tonight, instructed how to use call light, call for assistance, explained safety. pt verbalized and demonstrate understanding. needs attended, maintained on isolation due to hx of mrsa to right thumb wound. call light in reach. low bed position and lock, bed alarm on. will follow-up.
[2019-05-29 20:33] VITALS: BP_SYST 119
--- NOTE | 2019-05-29 22:00 | NUR ---
sleeping, stable. breathing ok. no pain. maintained isolation.
--- NOTE | 2019-05-30 | NUR ---
sleeping, no difficulty of breathing stable. no pain. maintained isolation. needs attended. will follow-up.
--- NOTE | 2019-05-30 02:00 | NUR ---
sleeping, stable, no complains, no sob. maintained isolation. needs attended. call light in reach. will follow-up.
[2019-05-30] MEDS: VANCOMYCIN HCL 1,000 MG in NS 250 ML IV SCH ×3 (02:53→19:32)
[2019-05-30 03:36] VITALS: BP_SYST 109
--- NOTE | 2019-05-30 04:02 | NUR ---
sleeping. no sob. no pain. pt turn self side to side. stable. call light in reach. will follow-up.
--- NOTE | 2019-05-30 06:25 | NUR ---
sleeping. no sob. no pain. blood sugar 134, no coverage, pt turn self side to side. stable. call light in reach. will follow-up.
--- NOTE | 2019-05-30 07:25 | NUR ---
closing: pt is still sleeping. no sob. no pain.stable. needs attended the whole shift.maintained on isolation. call light in reach. bedside report given to am rn.
[2019-05-30 08:00] VITALS: BP_SYST 155
--- NOTE | 2019-05-30 08:00 | NUR ---
Note Pt sitting up in bed eating his breakfast. No SOB/resp distress or pain/discomfort noted at this time. SALLY PICC intact and patent infusing IVF's well at this time. Pt denies any needs at this time. Right thumb dressing CDI at this time. Right hand neuro check WNL at this time. Call light within reach.
[2019-05-30] MEDS: CARVEDILOL 12.5 MG TABLET (COREG) PO SCH ×2 (08:29→21:45)
--- NOTE | 2019-05-30 10:15 | NUR ---
Note Pt resting in bed. Denies any needs at this time. Has blanket/sheet over his head, pt states he always sleeps that way. Call light within reach.
[2019-05-30] MEDS: INSULIN REGULAR, HUMAN 100 UNITS/ML, 10 ML VIAL (humuLIN R) SUBCUT PRN ×3 (11:16→21:51)
--- NOTE | 2019-05-30 12:25 | NUR ---
NOTE Wound care and cleaning done on pt's right thumb and dressing reapplied at this time. Wound bed was dry, no bleeding/drainage/open areas noted at this time. Pt's mother at bedside at this time. No needs noted at this time. Call light within reach.
[2019-05-30 12:38] VITALS: BP_SYST 147
--- NOTE | 2019-05-30 14:14 | NUR ---
Dietitian Recommendations * Recommend CCHO, 2 gm Na diet, Glucerna BID (ONS provides 440 kcal/day and 20 gm protein/day) ROBERT, RD Please refer to Nutrition Assessment for details. Addendum: 05/30/19 at [address] Amended: Links added.
[2019-05-30 16:32] VITALS: BP_SYST 130
[2019-05-30] MEDS: NACL 0.9% 1,000 ML IV SCH (16:32)
--- NOTE | 2019-05-30 18:00 | NUR ---
Note Pt resting in bed, denies any needs at this time. No SOB/resp distress or pain/discomfort noted at this time. PICC in SALLY intact and patent infusing at this time. Pt sitting up in bed eating his dinner, No needs noted at tis time. Pt was checked on q1' and PRN all shift for needs and care. Pt ambulates to restroom and in room all shift with steady gait. Unable to ambulate in hallway due to isolation precautions (MRSA in right thumb wound). Call light within reach.
--- NOTE | 2019-05-30 19:20 | NUR ---
initial notes: pt is on bed sleeping, wakes up. no complain of pain.no sob. not distress. stable. pt has ivf infusing to left picc line 2 ports- dressing is dry clean and intact, patent. no sign of infiltration. pt has dressing to right thumb-dressing is clean dry and intact.explained to pt plan of care for tonight, instructed how to use call light, call for assistance, explained safety. pt verbalized and demonstrate understanding. needs attended, maintained on isolation due to hx of mrsa to right thumb wound. call light in reach. low bed position and lock, bed alarm on. will follow-up.
[2019-05-30 19:35] VITALS: BP_SYST 136
--- NOTE | 2019-05-30 22:00 | NUR ---
still in bed. resting, comfortable. wakes up when check. stable no pain. needs attended. call light in reach. will follow-up.
[2019-05-31] VITALS: BP_SYST 150
--- NOTE | 2019-05-31 | NUR ---
sleeping, comfortable. no sob. no sign of pain, stable. ivf infusing well. call light in reach. will folow-up.
[2019-05-31 00:49] VITALS: BP_SYST 140
--- NOTE | 2019-05-31 02:45 | NUR ---
sleeping, comfortable. wakes up when iv antibiotic given. stable. no pin. iv tubing change done. maintained contact isolation. needs attended. call light in reach. will follow-up.
[2019-05-31] MEDS: VANCOMYCIN HCL 1,000 MG in NS 250 ML IV SCH ×3 (02:57→17:19)
--- NOTE | 2019-05-31 05:02 | NUR ---
sleeping, no difficulty of breathing stable. no pain. maintained isolation. needs attended. will follow-up.
[2019-05-31] MEDS: INSULIN REGULAR, HUMAN 100 UNITS/ML, 10 ML VIAL (humuLIN R) SUBCUT PRN ×4 (06:17→20:55)
--- NOTE | 2019-05-31 07:29 | NUR ---
closing: pt is still sleeping. wake up. no sob. no pain.stable. needs attended the whole shift.maintained on isolation. call light in reach. bedside report given to am rn.
--- NOTE | 2019-05-31 07:54 | NUR ---
Opening Note patient is having breakfast in bed. No c/o pain reported. Left thumb is wrapped with occlusive dressing. RUE PICC is running NS@50. Isolation precautions are in place. Will continue to monitor.
[2019-05-31 08:00] VITALS: BP_SYST 147
[2019-05-31] MEDS: CARVEDILOL 12.5 MG TABLET (COREG) PO SCH ×2 (08:47→20:53)
--- NOTE | 2019-05-31 10:20 | NUR ---
Rounds Patient is currently speaking with the shipping and receiving assistant
[2019-05-31] MEDS: NACL 0.9% 1,000 ML IV SCH ×2 (11:13→17:23)
--- NOTE | 2019-05-31 12:15 | NUR ---
Rounds Patient is having lunch in bed. Patient does not report any distress. Call light is within reach.
[2019-05-31 12:42] VITALS: BP_SYST 107
--- NOTE | 2019-05-31 14:15 | NUR ---
Rounds Patient is sleeping in bed. Eyes are closed
--- NOTE | 2019-05-31 16:16 | NUR ---
Wound Care Changed dressing on the right thumb. No drainage noted from the site. There is moderate amount of purplish discoloration. Patient does not report any pain. Covered site with foam dressing and wrapped with Kerlex. Patient tolerated well.
[2019-05-31 16:36] VITALS: BP_SYST 137
[2019-05-31] MEDS: metFORMIN HCL 500 MG TABLET PO SCH (17:13)
[2019-05-31] MEDS: HYDROcodone/ACETAMIN 10-325 MG TAB PO PRN (17:14)
--- NOTE | 2019-05-31 18:12 | NUR ---
Closing Note Patient is resting in bed. Patient has not been in any distress throughout the shift. LUE PICC line is in place running NS@50. Isolation precautions remain in place. Will endorse care to the oncoming nurse.
--- NOTE | 2019-05-31 19:35 | NUR ---
Initial Note Received patient asleep but arousable. Awake, alert and oriented lying in bed. VS stable. No SOB noted. Denies any pain or n/v at this time. Dressing on right hand CDI. IVF infusing to SALLY PICC double lumen. Dressing CDI. Room air. SCDs off at this time. Care and monitoring will be provided per protocol. Call light within reach. Bed alarm off per patient's request. Bed at lowest position at all times. Needs attended. Kept warm and comfortable.
[2019-05-31 20:00] VITALS: BP_SYST 145
--- NOTE | 2019-05-31 20:50 | NUR ---
RN Note Due meds given, tolerated well. Latest blood sugar was 278, coverage given. No other complaints. Advised that he will get IV antibiotic around 3 am. Had several regular BMs today. Needs attended.
--- NOTE | 2019-05-31 23:00 | NUR ---
RN Note Patient sleeping at this time. No SOB or grimacing noted. IVF infusing.
--- NOTE | 2019-06-01 01:30 | NUR ---
RN Note Asleep but arousable. No complaints at this time. IVF infusing.
[2019-06-01] MEDS: VANCOMYCIN HCL 1,000 MG in NS 250 ML IV SCH (02:38)
--- NOTE | 2019-06-01 03:30 | NUR ---
RN Note Patient sleeping comfortably in bed. Repositions self. IVF infusing. No distress noted.
[2019-06-01] MEDS: INSULIN REGULAR, HUMAN 100 UNITS/ML, 10 ML VIAL (humuLIN R) SUBCUT PRN ×4 (06:09→20:25)
--- NOTE | 2019-06-01 06:42 | NUR ---
End Note Afebrile. VS stable. Denies any pain, SOB or n/v throughout the night. Ambulates to the bathroom with steady gait. IVF infusing. Latest blood sugar was 229, coverage was given. Dressing on right hand CDI. Care and monitoring provided per protocol. Call light within reach. Bed alarm off per patient's request. Bed at lowest position at all times. Needs attended. Kept warm and comfortable. Isolation precaution observed. Awaiting SNF bed.
--- NOTE | 2019-06-01 07:50 | NUR ---
Opening Note Patient is awake and having breakfast in bed. Patient is c/o minor right thumb pain at the moment. LUE PICC line is in place infusing NS@50. Contact precautions remain in place. Call light is within reach and bed is in the lowest position. Will continue to monitor.
[2019-06-01 08:00] VITALS: BP_SYST 142
[2019-06-01 08:33] LABS: ALBUMIN 2.6 g/dL (3.4-4.8); CALCIUM 8.7 mg/dL (8.4-11.0); CREATININE 0.99 mg/dL (0.55-1.30); POTASSIUM 4.1 mmol/L (3.5-5.1); TOTAL BILIRUBIN 0.3 mg/dL (0.0-1.0)
[2019-06-01] MEDS: metFORMIN HCL 500 MG TABLET PO SCH ×2 (09:04→17:43)
[2019-06-01] MEDS: CARVEDILOL 12.5 MG TABLET (COREG) PO SCH ×2 (09:04→20:21)
[2019-06-01] MEDS: HYDROcodone/ACETAMIN 10-325 MG TAB PO PRN (09:06)
--- NOTE | 2019-06-01 10:20 | NUR ---
Rounds Patient is bathing himself.
[2019-06-01 11:33] VITALS: BP_SYST 136
--- NOTE | 2019-06-01 12:01 | NUR ---
Rounds Patient is eating lunch in bed.
[2019-06-01] MEDS: VANCOMYCIN HCL 1,250 MG in NS 250 ML IV SCH ×2 (12:15→20:20)
--- NOTE | 2019-06-01 14:38 | NUR ---
Rounds Patient is awake and alert. Speaking with his mother at the bedside.
[2019-06-01 15:41] VITALS: BP_SYST 126
--- NOTE | 2019-06-01 16:38 | NUR ---
Rounds Patient is sleeping in bed. Eyes are closed
--- NOTE | 2019-06-01 18:50 | NUR ---
Closing Note Patient has remained stable throughout the shift. LUE Picc line is in place. Right thumb, dressing is in place. Contact precaution are in place. Will endorse care to the oncoming nurse.
[2019-06-01 19:00] VITALS: BP_SYST 147
--- NOTE | 2019-06-01 19:15 | NUR ---
change of shift.pt.present isolation status;+mrsa;wound;rt.thumb.pt.presents quiescent affect;calm,affable. no c/o pain,nausea.pt.capable to ambulate unassisted;to assess gait.urinal w/in reach.general status stable. respiratory status stable@room air;unlabored.call light/telephone w/in the reach of the pt.
[2019-06-01 20:00] VITALS: BP_SYST 147
--- NOTE | 2019-06-01 20:00 | NUR ---
pt.assessed.v/s assessed;values w/in normal limits.no c/o pain,nausea.i have apprised the pt.that snacks/beverages are available w/in the shift. pt.had requests any food items are fine.i have provided a sandwich;crackers,jello;diabetic.no additional request.general status stable.respiratory status stable./iv access intact;patent if fluids infusing.pt.had ambulated to the restroom;gait steady. call light/telephone w/in the reach of the pt.
[2019-06-01] MEDS: NACL 0.9% 1,000 ML IV SCH (20:19)
--- NOTE | 2019-06-01 20:30 | NUR ---
i have assessed the blood glucose;values;208mg/dl.
--- NOTE | 2019-06-01 21:00 | NUR ---
2100p medications administered.i have administered regular insulin;4-units.no additional requests posited@this hour. i have changed the iv fluids bag.
--- NOTE | 2019-06-01 22:00 | NUR ---
pt.assessed.pt.presents quiescent affect;calm,somnolent.iv acces intact;patent;iv fluids infusing. general status stable.respiratory status stable.pt.capable to reposition self.call light/telephone w/in the reach of the pt.
[2019-06-02] VITALS: BP_SYST 135
--- NOTE | 2019-06-02 | NUR ---
pt.assessed.pt.presents quiescent affect;calm,somnolent.no c/o pain,nausea.iv access intact;iv fluids infusing. general status stable.pt.capable to reposition self.call light/telephone w/in the reach of the pt.
--- NOTE | 2019-06-02 02:00 | NUR ---
pt.assessed.pt.presents quiescent affect;calm,somnolent.iv acces intact;patent;iv fluids infusing.general status stable. respiratory status stable.pt.capable to reposition self.call light/telephone w/in the reach of the pt.
--- NOTE | 2019-06-02 04:00 | NUR ---
pt.assessed.pt.presents quiescent affect;calm,somnolent.i have administered vancomycin;abx;ivpb;0400a dose.no c/o pain,nausea. pt.capable to reposition self.picc line assessed;intact;patent.iv fluids infusing.call light/telephone w/in the reach of the pt.
[2019-06-02] MEDS: VANCOMYCIN HCL 1,250 MG in NS 250 ML IV SCH ×2 (04:22→12:55)
[2019-06-02] MEDS: INSULIN REGULAR, HUMAN 100 UNITS/ML, 10 ML VIAL (humuLIN R) SUBCUT PRN ×4 (06:17→22:02)
--- NOTE | 2019-06-02 06:30 | NUR ---
pt.assessed.pt.presents quiescent affect;clam,resting no c/o pain,nausea.i have assessed the blood glucose;value;180mg/dl.i have administered;regular insulin:2-units.i have attended to the wound care dsg change.no requests posited @this hour.pt.capable to reposition self.call light/telephone w/in the reach of the pt.iv access:picc line intact;patent;iv fluids infusing.
[2019-06-02 08:00] VITALS: BP_SYST 152
--- NOTE | 2019-06-02 08:00 | NUR ---
Patient is at rest A/Ox4. PICC on left upper arm. Ambulatory. Instructed on POC and use of call light. Able to return demo denier control operator light use. Bed locked at the lowest position, will continue to monitor.
[2019-06-02] MEDS: CARVEDILOL 12.5 MG TABLET (COREG) PO SCH ×2 (08:05→22:00)
[2019-06-02] MEDS: metFORMIN HCL 500 MG TABLET PO SCH ×2 (08:05→17:47)
--- NOTE | 2019-06-02 09:54 | NUR ---
PATIENT IS RESTING, NO SIGNS OF DISTRESS NOTED.
--- NOTE | 2019-06-02 10:00 | NUR ---
Discharge Planning: DCP gave packet to Ambika from [facility] pt packet and CM will contact for update.
--- NOTE | 2019-06-02 11:11 | NUR ---
Blood sugar 192. 2 units of RI is given per sliding scale.
[2019-06-02 11:26] VITALS: BP_SYST 149
--- NOTE | 2019-06-02 13:00 | NUR ---
Patient finishes his lunch without distress.
--- NOTE | 2019-06-02 15:18 | NUR ---
Patient is resting, chest rising and falling symmetrically, no signs of distress noted
[2019-06-02 15:44] VITALS: BP_SYST 149
--- NOTE | 2019-06-02 17:00 | NUR ---
Blood sugar 154. RI 2 units will be given.
--- NOTE | 2019-06-02 18:12 | NUR ---
Patient finishes dinner without distress.
[2019-06-02 21:15] VITALS: BP_SYST 137
[2019-06-02] MEDS: VANCOMYCIN HCL 1,000 MG in NS 250 ML IV SCH (22:00)
[2019-06-02] MEDS: NACL 0.9% 1,000 ML IV SCH (22:04)
--- NOTE | 2019-06-02 22:15 | NUR ---
BLOOD SUGAR BSG 218 MG DL SLIDING SCALE ORDERED 4 UNITS OF RI SUB Q. administer / .
--- NOTE | 2019-06-02 23:59 | NUR ---
ASSIST OUT OF BED TO AMBULATE REST ROOM FALL MEASURES INTACT & EFFECTIVE .
--- NOTE | 2019-06-03 00:03 | NUR ---
RESTORIL 30 MG PO GIVEN PER PATIENT REQUEST / .
[2019-06-03 00:18] VITALS: BP_SYST 140
--- NOTE | 2019-06-03 00:24 | NUR ---
WOUND CARE RIGHT THUMB site cleansed with NSS , covered with FOAM DSD , patient ALERT & VERBALIZE wound site IMPROVEMENT .
--- NOTE | 2019-06-03 02:26 | NUR ---
Hourly Rounding patient Resting is Verbally Responsive Chest Rise & Fall Remain unchanged also symmetrical & unlabored continue to monitor .
[2019-06-03] MEDS: VANCOMYCIN HCL 1,000 MG in NS 250 ML IV SCH ×3 (03:19→20:27)
--- NOTE | 2019-06-03 06:45 | NUR ---
PATIENT RESTING , USING URINAL NEEDED CLEAR YELLOW URINE , SAFETY MEASURES IMPLEMENTED & EFFECTIVE , call vanegas with patient .
[2019-06-03] MEDS: INSULIN REGULAR, HUMAN 100 UNITS/ML, 10 ML VIAL (humuLIN R) SUBCUT PRN ×3 (06:46→20:31)
--- NOTE | 2019-06-03 07:55 | NUR ---
INITIAL NOTE RECEIVED PT IN BED, NO S/S OF DISTRESS OR SOB NOTED, PT HAS NO C/O PAIN AT THIS TIME, PT IN STABLE CONDITION, PT AAOX4, VERBAL. PT HAS A PICC LINE ON LEFT UPPER ARM, BOTH PORTS FLUSH AND HAVE BLOOD RETURN, DRESSING CLEAN AND DRY AND NON OCCLUDED, DUE TO BE CHANGED 06/04/19. BED AT LOWEST POSITION, CALL LIGHT WITHIN REACH, WILL CONTINUE TO MONITOR PT FOR ANY CHANGES, FALL AND SAFETY PRECAUTIONS IN PLACE, CONTACT PRECAUTIONS IN PLACE.
[2019-06-03 08:55] VITALS: BP_SYST 145
[2019-06-03] MEDS: CARVEDILOL 12.5 MG TABLET (COREG) PO SCH ×2 (08:55→20:35)
[2019-06-03] MEDS: metFORMIN HCL 500 MG TABLET PO SCH ×2 (08:55→17:07)
--- NOTE | 2019-06-03 10:45 | NUR ---
ROUNDS PT IN BED, NO S/S OF DISTRESS OR SOB NOTED, PT HAS NO C/O PAIN AT THIS TIME, PT IN STABLE CONDITION, PT WATCHING TV, WILL CONTINUE TO MONITOR PT FOR ANY CHANGES.
[2019-06-03 12:00] VITALS: BP_SYST 125
--- NOTE | 2019-06-03 12:13 | NUR ---
Discharge Planning: DCP gave packet to Jocelynn from [facility]. Addendum: 06/03/19 at 1529 by Cathi BENITEZ DCP faxed referral to [facility] (f [phone] p [phone]) DCP to follow up.
--- NOTE | 2019-06-03 12:50 | NUR ---
ROUNDS PT IN BED, NO S/S OF DISTRESS OR SOB NOTED, PT HAS NO C/O PAIN AT THIS TIME, PT IN STABLE CONDITION, PT WATCHING TV AND TALKING TO VISITORS AT BEDSIDE, WILL CONTINUE TO MONITOR PT FOR ANY CHANGES.
[2019-06-03 16:23] VITALS: BP_SYST 119
--- NOTE | 2019-06-03 18:23 | NUR ---
CLOSING NOTE PT IN BED, NO S/S OF DISTRESS OR SOB NOTED, PT HAS NO C/O PAIN AT THIS TIME, PT IN STABLE CONDITION, PT AAOX4, VERBAL. PT HAS A PICC LINE ON LEFT UPPER ARM, BOTH PORTS FLUSH AND HAVE BLOOD RETURN, DRESSING CLEAN AND DRY. BED AT LOWEST POSITION, CALL LIGHT WITHIN REACH, WILL ENDORSE CARE OF PT TO INCOMING NURSE, FALL AND SAFETY PRECAUTIONS IN PLACE, CONTACT PRECAUTIONS IN PLACE.
[2019-06-03] MEDS: NACL 0.9% 1,000 ML IV SCH (19:29)
[2019-06-03 20:35] VITALS: BP_SYST 125
--- NOTE | 2019-06-03 20:35 | NUR ---
Opening notes Pt awake, resting in bed. VSS, afebrile. IVF infusing at ordered rate KIA PICC double lumen, good blood return, dressing due tomorrow. Dressing to Right thumb c/d/i. Call light within reach. Safety measures in place. Contact isolation maintained. To monitor.
--- NOTE | 2019-06-04 00:05 | NUR ---
Rounds Pt asleep. No s/s distress noted. Call light within reach. To monitor.
[2019-06-04 01:07] VITALS: BP_SYST 148
[2019-06-04] MEDS: VANCOMYCIN HCL 1,000 MG in NS 250 ML IV SCH ×3 (04:27→21:09)
--- NOTE | 2019-06-04 04:45 | NUR ---
PICC line dressing change KIA PICC line dressing changed per protocol via aseptic technique. No redness or drainage around site. All ports changed. Dated and initialed. Pt tolerated well.
--- NOTE | 2019-06-04 04:55 | NUR ---
Wound care Right thumb dressing changed. No redness or drainage noted. Cleansed with NS applied optifoarm and secured with chato gauze and paper tape. Pt tolerated well.
[2019-06-04 06:08] LABS: BASOPHILS % (AUTO) 0.4 % (0.0-2.0); EOSINOPHILS # (AUTO) 0.1 K/uL (0.0-0.4); EOSINOPHILS % (AUTO) 1.8 % (0.0-4.0); HEMATOCRIT 36.5 % (36-54); HEMOGLOBIN 12.6 g/dL (14.0-18.0); LYMPHOCYTES # (AUTO) 1.9 K/uL (1.0-5.5); LYMPHOCYTES % (AUTO) 25.6 % (20.5-51.5); MEAN CORPUSCULAR HEMOGLOBIN 30 pg (27-31); MEAN CORPUSCULAR HGB CONC 34 % (32-36); MEAN CORPUSCULAR VOLUME 87 fL (79.0-98.0); MONOCYTES # (AUTO) 0.6 K/uL (0.0-1.0); NEUTROPHILS # (AUTO) 4.8 K/uL (1.8-7.7); NEUTROPHILS % (AUTO) 64.2 % (40.0-70.0); PLATELET COUNT (AUTO) 312 K/uL (130-430); RED BLOOD CELL COUNT(AUTO) 4.21 MIL/uL (4.2-6.2); RED CELL DISTRIBUTION WIDTH 12.7 % (9.0-15.0); WHITE BLOOD COUNT (AUTO) 7.5 K/uL (4.8-10.8)
--- NOTE | 2019-06-04 06:18 | NUR ---
Closing notes Pt asleep, easily arousable. No s/s distress noted. Blood sugar checked this AM 175. 2units of Regular insulin administered per protocol. IVF infusing at ordered rate KIA PICC line 2 ports good blood return. All ports capped. R. thumb dressing C/D/I. Call light within reach. Safety measures in place. To endorse to AM nurse.
[2019-06-04] MEDS: INSULIN REGULAR, HUMAN 100 UNITS/ML, 10 ML VIAL (humuLIN R) SUBCUT PRN ×3 (06:23→21:13)
[2019-06-04 06:31] LABS: CALCIUM 9.2 mg/dL (8.4-11.0); CREATININE 1.31 mg/dL (0.55-1.30)
--- NOTE | 2019-06-04 07:20 | NUR ---
Opening notes Pt awake, A/Ox4, No complaints of pain, No SOB. IVF infusing as ordered via KIA PICC double lumen, good blood return. On contact isolation for MRSA of wound, on safety and aspiration precautions, HOB kept elevated, bed in lowest position, bed alarm on, 3 side rails up. Call light within reach. Will continue to monitor.
[2019-06-04 08:19] VITALS: BP_SYST 150
[2019-06-04] MEDS: CARVEDILOL 12.5 MG TABLET (COREG) PO SCH ×2 (08:27→21:09)
[2019-06-04] MEDS: metFORMIN HCL 500 MG TABLET PO SCH ×2 (08:27→18:00)
--- NOTE | 2019-06-04 09:00 | NUR ---
Rounds Patient sitting up in bed, all morning medications given as ordered. No adverse side effects noted. PICC line patent, and intact, no infiltration noted. No swelling noted. Patient in stable condition.
--- NOTE | 2019-06-04 11:30 | NUR ---
Rounds Blood sugar checked as ordered, no insulin coverage needed. Patient in stable condition.
[2019-06-04] MEDS: NACL 0.9% 1,000 ML IV SCH (12:59)
[2019-06-04 13:07] VITALS: BP_SYST 151
--- NOTE | 2019-06-04 13:13 | NUR ---
Lunch Patient sitting up in bed, eating lunch, tolerating well. No nausea, no vomiting noted. PICC line in place, intact, and infusing fluids as ordered. No adverse side effects noted.
--- NOTE | 2019-06-04 14:18 | NUR ---
Rounds Patient resting in bed, no complaints of pain. No SOB. PICC line in place, patent, and intact. Infusing fluids as ordered. No adverse side effects. Patient ambulated to restroom and back to bed with steady gait. Patient in stable condition.
--- NOTE | 2019-06-04 15:01 | NUR ---
Discharge Planning: DCP faxed pt referral to [facility] ([phone] p [phone]) per Jena pt accepted. DCP to follow up.
[2019-06-04 16:16] VITALS: BP_SYST 159
--- NOTE | 2019-06-04 16:16 | NUR ---
Rounds Patient resting in bed, no complaints of pain. PICC line patent, intact, and infusing as ordered. No infiltration noted.
--- NOTE | 2019-06-04 18:30 | NUR ---
Closing note Patient sitting up in bed, eating dinner, tolerating well. No nausea, no vomiting. A/Ox4, No complaints of pain, No SOB. IVF infusing as ordered via KIA PICC double lumen, good blood return. On contact isolation for MRSA of wound, on safety and aspiration precautions, HOB kept elevated, bed in lowest position, bed alarm on, 3 side rails up. Call light within reach. Patient in stable condition, all needs met.
--- NOTE | 2019-06-04 19:20 | NUR ---
OPENING NOTE Received report from Imer. Patient resting in bed awake, alert, oriented x4. Breathing unlabored and even on room air. No signs of distress, no needs at this time. Fall, safety, contact precautions in place. Bed in lowest position, brake on, call light within reach. IVF infusing as ordered. Will continue to monitor.
[2019-06-04 20:10] VITALS: BP_SYST 155
--- NOTE | 2019-06-04 21:15 | NUR ---
Med pass. Blood sugar 157. Administered 2 units of regular insulin SQ per PRN insulin sliding scale. IV abx hung.
--- NOTE | 2019-06-04 23:31 | NUR ---
Patient resting in bed with eyes closed. Breathing unlabored and even on room air. No signs of distress, no needs at this time. Fall, safety, contact precautions in place. Bed in lowest position, brake on, call light within reach. IVF infusing as ordered. Will continue to monitor.
[2019-06-05 01:23] VITALS: BP_SYST 147
[2019-06-05] MEDS: VANCOMYCIN HCL 1,000 MG in NS 250 ML IV SCH ×3 (05:08→21:07)
--- NOTE | 2019-06-05 05:11 | NUR ---
IV abx hung
[2019-06-05] MEDS: INSULIN REGULAR, HUMAN 100 UNITS/ML, 10 ML VIAL (humuLIN R) SUBCUT PRN ×3 (06:07→21:10)
--- NOTE | 2019-06-05 06:08 | NUR ---
Med pass. BS 154. Administered 2 units of regular insulin SQ per PRN insulin sliding scale.
[2019-06-05 06:14] LABS: CALCIUM 9.1 mg/dL (8.4-11.0); CREATININE 1.17 mg/dL (0.55-1.30); POTASSIUM 4.3 mmol/L (3.5-5.1)
--- NOTE | 2019-06-05 06:22 | NUR ---
WOUND CARE Cleansed right thumb wound with NS, patted dry, applied optifoam cut to size to right thumb, secured with kerlix and paper tape. Patient tolerated well.
--- NOTE | 2019-06-05 06:25 | NUR ---
CLOSING NOTE Patient resting in bed awake, alert, oriented x4. Breathing unlabored and even on room air. No signs of distress, no needs at this time. Fall, safety, contact precautions in place. Bed in lowest position, brake on, call light within reach. IVF infusing as ordered. Will endorse cares to day shift nurse.
--- NOTE | 2019-06-05 06:41 | NUR ---
Nutrition Update Sammy Scale 18 noted. Pt admitted for Sepsis Diet: [facility] BMI: 27.8 kg/m2 RD to follow per nutrition care standards.
[2019-06-05 08:00] VITALS: BP_SYST 158
--- NOTE | 2019-06-05 08:00 | NUR ---
initial notes rec patient asleep bit arousable to stimuli. ivf infusing well on the l picc line. no infiltration noted. bed to the lowest position and side rails up and locked. call light within reached. dressing on the r hum intact. no sob noted.
[2019-06-05] MEDS: CARVEDILOL 12.5 MG TABLET (COREG) PO SCH ×2 (09:50→21:09)
[2019-06-05] MEDS: metFORMIN HCL 500 MG TABLET PO SCH ×2 (09:51→17:55)
--- NOTE | 2019-06-05 10:00 | NUR ---
rounds due meds given and sonia well. went to sleep afetr. resting comfortably. no sob noted.
--- NOTE | 2019-06-05 12:00 | NUR ---
rounds no hypo/hyperglycemic reaction noted. seen by dr pride. denies pain. no sob noted.
[2019-06-05] MEDS ORDERED: SILVER SULFADIAZINE 1%, 25 GM TOPICAL CREAM (SSD) TP ONE (13:00)
--- NOTE | 2019-06-05 13:58 | NUR ---
Nutrition F/U RD reviewed pt's current EMR including diet Hx, physician notes, nursing notes, pertinent labs/meds/procedures, care trends and care activity. Current Diet Order: CCHO 2gm Na w/ Glucerna BID x6 days Subjective information: Pt seen resting in bed. Pt continues w/ good appetite and has been tolerating current diet. Pt also continues to tolerate Glucerna. Per dietary aide, pt has been asking for extra food. Per EMR, BG lab values remain elevated probably d/t diet non-compliance. PO intake: 100% average of 6 meals x 2 days. Per bed huddle discussion, pt is awaiting SNF placement. Current PO intake: Good 100% of 6 meals x 2 days Estimated Energy Expenditure (kcals/day) 8945-8189 kcal/day (30-35 kcal/kg CBW for sepsis) Estimated Protein Required (g/day) 132-176 gm/day (1.5-2 gm/kg CBW for sepsis) Estimated Fluid Required (l/day) 2.6-3 L/day (1 ml/kcal/day for maintenace) Problem/Etiology/Signs/Symptoms Increased nutritional needs related to metabolic demands sa evidenced by estimated nutritional requirements for sepsis. (*ongoing) Expected Outcomes/Goals - Monitor appetite and PO intakes w/ goal of pt meeting at least 75% of estimated nutritional needs, labs trending WNL, normal GI function, and skin integrity/wt maintenance Dietitian Recommendations * Recommend continuing CCHO, 2 gm Na diet, Glucerna BID (ONS provides 440 kcal/day and 20 gm protein/day) Follow Up Low Risk: F/U in 7 days
--- NOTE | 2019-06-05 14:00 | NUR ---
rounds call light within reached. sleeping at intervals.
--- NOTE | 2019-06-05 14:03 | NUR ---
Dietitian Recommendations * Recommend continuing CCHO, 2 gm Na diet, Glucerna BID (ONS provides 440 kcal/day and 20 gm protein/day). Please see Nutrition F/U note for details. SALEEM, RD
[2019-06-05 16:00] VITALS: BP_SYST 128
--- NOTE | 2019-06-05 17:57 | NUR ---
rounds no hypo hyperglycemic reaction noted. no sob noted. bed to the lowest position and side rails up and locked. call light within reached.
--- NOTE | 2019-06-05 18:53 | NUR ---
closing notes resting comfortably , no sob noted. bed to the lowest position and side rails up and locked.
[2019-06-05 20:18] VITALS: BP_SYST 145
[2019-06-05] MEDS: NACL 0.9% 1,000 ML IV SCH (21:08)
[2019-06-05] MEDS: SILVER SULFADIAZINE 1%, 25 GM TOPICAL CREAM (SSD) TP SCH (21:09)
--- NOTE | 2019-06-05 22:00 | NUR ---
blood sugar BSG 171 MG DL 2 UNITS OF REGULAR INSULIN SUB Q. administer per sliding scale .
--- NOTE | 2019-06-05 22:00 | NUR ---
SILVER SULFADIAZINE 1 % OINTMENT applied to RIGHT THUMB , patient awake alert , site is open to air clean & dry .
--- NOTE | 2019-06-05 23:17 | NUR ---
HOURLY ROUNDING patient Resting This Hour call vanegas with patient patient able to self Reposition using BEDSIDE URINAL as needed tolerating .
--- NOTE | 2019-06-05 23:58 | NUR ---
SBAR REPORT GIVEN TO Karla CORONA .
--- NOTE | 2019-06-06 | NUR ---
Opening Note Received report from CJ Matamoros. Patient was resting, no sign of distress. PIIC to KIA; NS infusing at 50 ml/hr. Patient refused bed alarm, stating he can walk steady. Call light w/in reach.
[2019-06-06 00:38] VITALS: BP_SYST 141
--- NOTE | 2019-06-06 02:17 | NUR ---
Rounds Patient is resting w/eyes closed. Symmetrical rise and fall of chest, no distress noted. Will monitor.
[2019-06-06] MEDS: VANCOMYCIN HCL 1,000 MG in NS 250 ML IV SCH ×3 (04:24→20:12)
--- NOTE | 2019-06-06 04:33 | NUR ---
Antibiotic Due antibiotic administered. Patient tolerating / infusing well via PIIC line. Patient sitting up for use of urinal. No further needs. Will monitor.
--- NOTE | 2019-06-06 04:52 | NUR ---
Patient Resting verbally Responsive VANCOMYCIN 1 GM IVPB infusing chest movement symmetrical no acute distress noted FALL precautions in place call vanegas with patient .
[2019-06-06] MEDS: INSULIN REGULAR, HUMAN 100 UNITS/ML, 10 ML VIAL (humuLIN R) SUBCUT PRN ×2 (06:32→20:27)
--- NOTE | 2019-06-06 08:00 | NUR ---
initial notes rec patient awake alert with hob elevated. ivf infusing well on the picc line l upper arm. no infiltration oted. bed to the lowest position and side rails up and locked. call light iwhtn reached and knows when to call for assistance. r thumb less swollen.
[2019-06-06 08:48] VITALS: BP_SYST 142
[2019-06-06] MEDS: CARVEDILOL 12.5 MG TABLET (COREG) PO SCH ×2 (09:40→20:12)
[2019-06-06] MEDS: metFORMIN HCL 500 MG TABLET PO SCH ×2 (09:41→19:29)
[2019-06-06] MEDS: SILVER SULFADIAZINE 1%, 25 GM TOPICAL CREAM (SSD) TP SCH ×2 (09:41→20:13)
[2019-06-06] MEDS: NACL 0.9% 1,000 ML IV SCH (09:43)
--- NOTE | 2019-06-06 10:00 | NUR ---
rounds due meds was given and sonia well. ambulates to the br at intervals. no sob noted.
--- NOTE | 2019-06-06 11:45 | NUR ---
rounds no hypo hyperglycemic reaction noted. due abx given as ordered. resting comfortably , call light within reached.
[2019-06-06 12:59] VITALS: BP_SYST 136
--- NOTE | 2019-06-06 15:10 | NUR ---
Discharge Planning: DCP faxed pt referral to [facility] (f [phone] p [phone]) DCP to follow up.
--- NOTE | 2019-06-06 15:10 | NUR ---
WOUND RE-EVALUATION: Patient received in a Milly Bed with a mattress, awake, alert, and oriented. Patient is unable to turn independently. Sammy Score is an 18. Intrinsic factors that delay wound healing: Diabetes Mellitus. Extrinsic factors that delay wound healing: Decreased mobility. Microbiology: Blood culture results 2 negative. MRSA screen results negative. Wound Assessment: 1. Right Thumb: Healing abscess on medial aspect, present on admission. I&D performed on right thumb abscess site in ER by Dr. An on a prior admission. No visible wound bed presently. No odor, no drainage. Lateral aspect of thumb has dark discoloration. Medial palmar aspect of thumb has soft, wrinkly skin (will continue to monitor for drainage or further abscess formation). Skin is intact, no drainage noted. No dressing needed. Continue with application of silver sulfadiazine twice a day per Dr. Abbott's orders. Contact wound care nurse if site opens or drains. Also recommend continue: Encourage and assist patient as needed with repositioning every 2 hours with pillow support, and off-load pressure areas with pillows for pressure re-distribution. Offload, elevate and float bilateral heels with pillows. Perform skin care and monitor skin integrity Q shift.
--- NOTE | 2019-06-06 16:00 | NUR ---
rounds requested for a snack and dietary sent food ar bedside.
[2019-06-06 17:39] VITALS: BP_SYST 140
--- NOTE | 2019-06-06 18:30 | NUR ---
closing notes no hypo hyperglycemic reaction noted. bed to the lowest position and side rails up and locked. call light within reached. resting comfortaby in bed.
--- NOTE | 2019-06-06 19:30 | NUR ---
OPENING NOTES BEDSIDE REPORT RECEIVED WITH PATIENT IN BED. AAOX4 AND ABLE TO VERBALIZE NEEDS. PICC LINE TO LEFT UPPER ARM CLEAN DRY AND INTACT. BED ALARM REFUSED, EDUCATION PROVIDED BUT STILL REFUSED. PATIENT IS AMBULATORY WITH A STEADY GAIT. RIGHT THUMB WOUND NOTED. NO PAIN OR RESPIRATORY DISTRESS. BED LOW AND LOCKED WITH BILATERAL UPPER RAILS UP. ORIENTED THE PATIENT TO THE ROOM AND USE OF THE CALL LIGHT. WILL MONITOR ON ROUNDS.
[2019-06-06 20:00] VITALS: BP_SYST 146
--- NOTE | 2019-06-06 22:00 | NUR ---
ADMINISTERED VANCO ANTIBIOTICS AND PO MEDICATIONS. TOLERATED WELL WITH NO ADVERSE EFFECTS.
--- NOTE | 2019-06-07 00:20 | NUR ---
PATIENT IN BED ASLEEP. NO NEEDS AT THIS TIME. WILL CONT TO MONITOR ON ROUNDS.
[2019-06-07 00:29] VITALS: BP_SYST 145
[2019-06-07] MEDS: NACL 0.9% 1,000 ML IV SCH (03:17)
[2019-06-07] MEDS: VANCOMYCIN HCL 1,000 MG in NS 250 ML IV SCH ×3 (03:21→20:59)
--- NOTE | 2019-06-07 04:55 | NUR ---
NO CHANGE IN CONDITION. WILL CONTINUE TO MONITOR.
--- NOTE | 2019-06-07 06:44 | NUR ---
CLOSING NOTES PATIENT IN BED RESTING. IV INFUSING NS AT LEFT PICC. NO S/S OF INFILTRATION. BLOOD SUGAR 143 NO COVERAGE INDICATED. BED LOCKED AND LOW. NO RESPIRATORY DISTRESS. STATES HE FEELS BETTER THIS MORNING. ALL NEEDS HAVE BEEN MET AND WILL ENDORSE CARE TO ONCOMING NURSE.
[2019-06-07 07:40] VITALS: BP_SYST 147
--- NOTE | 2019-06-07 07:50 | NUR ---
OPENING NOTE Patient resting in the bed. No acute distress. AAO x 4. Denied of pain. Skin warm and dry to touch. PICC line intact to KIA, no redness, no swelling, no drainage, covered with clean and dry transparent dressing. On NS at 50ml/hr, infusing well. On contact isolation. Discussed the safety issue, use call light when needs help, and plan of care, verbally understanding. Safety measure maintained. Call light within reached. Bed locked in low position, side rails up. Refused bed alarm, risk and benefit explained, verbally understanding. Will continue to monitor.
[2019-06-07] MEDS: CARVEDILOL 12.5 MG TABLET (COREG) PO SCH ×2 (09:24→20:59)
[2019-06-07] MEDS: SILVER SULFADIAZINE 1%, 25 GM TOPICAL CREAM (SSD) TP SCH ×2 (09:25→21:03)
[2019-06-07] MEDS: metFORMIN HCL 500 MG TABLET PO SCH ×2 (09:25→18:44)
--- NOTE | 2019-06-07 09:55 | NUR ---
AM SCHEDULE GIVEN.
--- NOTE | 2019-06-07 12:29 | NUR ---
BS=90 No insulin coverage needed per sliding scale.
[2019-06-07 12:40] VITALS: BP_SYST 145
--- NOTE | 2019-06-07 12:50 | NUR ---
SEEN AND EXAMINED BY DR. SIMMS [facility].
--- NOTE | 2019-06-07 14:50 | NUR ---
ROUND Patient resting in the bed. No acute distress. PICC intact, IVF infusing well. Safety measure maintained. Call light within reached. Continue on contact isolation. Continue to monitor.
[2019-06-07 16:10] VITALS: BP_SYST 141
--- NOTE | 2019-06-07 16:20 | NUR ---
BATHROOM Patient ambulated to bathroom in steady gait. Safety measure maintained. Continue to monitor.
--- NOTE | 2019-06-07 18:36 | NUR ---
TG=130 No insulin coverage needed per sliding scale.
--- NOTE | 2019-06-07 18:42 | NUR ---
CLOSING NOTE Patient resting in the bed. No acute distress. AAO x 4. Denied of pain. Skin warm and dry to touch. PICC line intact to KIA, no redness, no swelling, no drainage, covered with clean and dry transparent dressing. On NS at 50ml/hr, infusing well. On contact isolation. All needs met and attended. Safety measure maintained. Call light within reached. Bed locked in low position, side rails up. Refused bed alarm, risk and benefit explained, verbally understanding. Will endorse to night nurse.
--- NOTE | 2019-06-07 19:25 | NUR ---
OPENING NOTES PATIENT RESTING IN BED AAOX4 AND ABLE TO VERBALIZE NEEDS. LEFT ARM UPPER PIC CLEAN DRY AND INTACT. NO S/S OF INFILTRATION. PATIENT IS AMBULATORY WITH A STEADY GAIT. NO COMPLAINTS OF PAIN, RESPIRATORY DISTRESS, OR DISCOMFORT. ORIENTED THE PATIENT TO THE ROOM AND USE OF THE CALL LIGHT. BED ALARM AND SCD'S REFUSED. EDUCATION PROVIDED. WILL MONITOR THE PATIENT FOR ANY CHANGE IN CONDITION.
[2019-06-07 20:00] VITALS: BP_SYST 148
--- NOTE | 2019-06-07 22:52 | NUR ---
PATIENT IN BED RESTING. MEDICATIONS TOLERATED WELL. BS 150 WITH NO INSULIN COVERAGE INDICATED. IV VANCOMYCIN INFUSING. PATIENT REQUESTED SNACKS. INFORMED PATIENT OF SUGAR INTAKE AND DM EDUCATION. NO COMPLAINTS OF PAIN OR RESPIRATORY DISTRESS. WILL CONTINUE TO MONITOR ON ROUNDS.
[2019-06-08] MEDS: NACL 0.9% 1,000 ML IV SCH (00:07)
--- NOTE | 2019-06-08 00:09 | NUR ---
PATIENT IN BED ASLEEP. NO VISUALIZED FACIAL GRIMACING OR RESPIRATORY DISTRESS. CALL LIGHT WITHIN REACH. WILL CONT TO MONITOR.
--- NOTE | 2019-06-08 03:38 | NUR ---
PATIENT IN BED ASLEEP. NO COMPLAINTS OF PAIN OR RESPIRATORY DISTRESS. CALL LIGHT WITHIN REACH. WILL CONTINUE TO MONITOR.
[2019-06-08] MEDS: VANCOMYCIN HCL 1,000 MG in NS 250 ML IV SCH ×3 (04:25→20:18)
--- NOTE | 2019-06-08 06:53 | NUR ---
CLOSING NOTES PATIENT IN BED RESTING. IV INFUSING NS AT LEFT PICC. NO S/S OF INFILTRATION. BLOOD SUGAR 130 NO COVERAGE INDICATED. BED LOCKED AND LOW. NO RESPIRATORY DISTRESS. STATES HE FEELS BETTER THIS MORNING. ALL NEEDS HAVE BEEN MET AND WILL ENDORSE CARE TO ONCOMING NURSE.
[2019-06-08 07:45] VITALS: BP_SYST 149
--- NOTE | 2019-06-08 07:45 | NUR ---
OPENING NOTE Patient resting in the bed. No acute distress. AAO x 4. Denied of pain. Skin warm and dry to touch. PICC line intact to KIA, no redness, no swelling, no drainage, covered with clean and dry transparent dressing. On NS at 50ml/hr, infusing well. On contact isolation. Discussed the safety issue, use call light when needs help, and plan of care, verbally understanding. Safety measure maintained. Bed locked in low position, side rails up. Refused bed alarm, risk and benefit explained, verbally understanding. Call light within reached. Will continue to monitor.
[2019-06-08] MEDS: metFORMIN HCL 500 MG TABLET PO SCH ×2 (08:36→17:49)
[2019-06-08] MEDS: CARVEDILOL 12.5 MG TABLET (COREG) PO SCH ×2 (08:36→20:22)
[2019-06-08] MEDS: SILVER SULFADIAZINE 1%, 25 GM TOPICAL CREAM (SSD) TP SCH ×2 (08:37→20:25)
--- NOTE | 2019-06-08 08:38 | NUR ---
AM SCHEDULE MED GIVEN Patient resting in the bed, AM schedule med given as ordered, tolerated well. Safety measure maintained. Call light within reached. Bed locked in low position, side rails up. Continue on contact isolation. Continue to monitor.
--- NOTE | 2019-06-08 11:54 | NUR ---
BB=530 No insulin coverage needed per sling scale for JG=068.
[2019-06-08 11:58] VITALS: BP_SYST 143
--- NOTE | 2019-06-08 14:10 | NUR ---
SEEN AND EXAMINED BY DR. SIMMS [facility].
--- NOTE | 2019-06-08 15:10 | NUR ---
SLEEPING Patient sleeping at this time. PICC line intact, IVF infusing well. Continue on contact isolation. Safety measure maintained. Bed in low position, side rails up. Call light within reached. Continue to monitor.
[2019-06-08 16:15] VITALS: BP_SYST 144
--- NOTE | 2019-06-08 17:52 | NUR ---
EN=831 No insulin coverage needed per sliding scale for TB=662.
--- NOTE | 2019-06-08 18:39 | NUR ---
CLOSING NOTE Patient resting in the bed. No acute distress. No c/o pain during shift. Skin warm and dry to touch. PICC line intact to KIA, no redness, no swelling, no drainage, covered with clean and dry transparent dressing. On NS at 50ml/hr, infusing well. On contact isolation. All needs met and attended. Safety measure maintained. Bed locked in low position, side rails up. Refused bed alarm, risk and benefit explained, verbally understanding. Call light within reached. Will endorse to night nurse.
--- NOTE | 2019-06-08 19:15 | NUR ---
OPENING NOTES RECEIVED PATIENT IN BED AAO X4. BREATHING UNLABORED ON ROOM AIR. DENIES PAIN AT THIS TIME. BED IN LOWEST LOCKED POSITION. CALL LIGHT WITH IN REACH.
--- NOTE | 2019-06-08 20:18 | NUR ---
MED PASS PATIENT DUE MEDICATIONS GIVEN. DUE ANTIBIOTIC INFUSED. KIA PICC LINE INTACT. ROUTINE FINGER STICK SUGAR 138. NO COVERAGE NEEDED PER SLIDING SCALE. VITAL SIGNS STABLE. CALL LIGHT WITH IN EASY REACH.
[2019-06-08 20:23] VITALS: BP_SYST 152
--- NOTE | 2019-06-09 00:20 | NUR ---
ROUNDS PATIENT RESTING IN BED. BREATHING UNLABORED. IVF INFUSING.
[2019-06-09 00:40] VITALS: BP_SYST 153
[2019-06-09] MEDS: NACL 0.9% 1,000 ML IV SCH (03:12)
[2019-06-09] MEDS: VANCOMYCIN HCL 1,000 MG in NS 250 ML IV SCH ×3 (03:13→20:44)
--- NOTE | 2019-06-09 03:13 | NUR ---
IVF/ATB COMPLETE IVF TUBINGS CHANGED. DUE ANTIBIOTIC INFUSED.
--- NOTE | 2019-06-09 06:18 | NUR ---
CLOSING NOTES PATIENT RESTING IN BED. BREATHING UNLABORED ON ROOM AIR. NO C/O PAIN THROUGHOUT THE NIGHT. IVF INFUSING ORDERED VIA KIA PICC LINE WITH DRESSING DRY AND INTACT. PATIENT NEEDS ATTENDED. BED IN LOWEST LOCKED POSITION. CALL LIGHT WITH IN REACH.
[2019-06-09 07:48] VITALS: BP_SYST 148
--- NOTE | 2019-06-09 08:00 | NUR ---
Note Pt sitting up in bed eating his breakfast. No SOB/resp distress or pain/discomfort noted a this time. KIA PICC intact and patent infusing IVF's well at this time. Pt is ambulatory to restroom with steady gait. No needs noted at this time. Call light within reach. Pt maintained with contact isolation precautions at this time for MRSA in right thumb wound. Call light within reach.
[2019-06-09] MEDS: metFORMIN HCL 500 MG TABLET PO SCH ×2 (08:55→17:44)
[2019-06-09] MEDS: CARVEDILOL 12.5 MG TABLET (COREG) PO SCH ×2 (08:55→20:44)
[2019-06-09] MEDS: SILVER SULFADIAZINE 1%, 25 GM TOPICAL CREAM (SSD) TP SCH ×2 (08:56→20:47)
[2019-06-09] MEDS: INSULIN REGULAR, HUMAN 100 UNITS/ML, 10 ML VIAL (humuLIN R) SUBCUT PRN (11:30)
--- NOTE | 2019-06-09 12:00 | NUR ---
Note Pt sitting up in bed eating his lunch. IVF's infusing well through KIA PICC site. No needs noted at this time. Pt next to nurses' station for close observation for needs and care. Call light within reach.
[2019-06-09 12:33] VITALS: BP_SYST 155
--- NOTE | 2019-06-09 15:35 | NUR ---
Note Pt resting in bed, denies any needs at this time. Call light within reach.
[2019-06-09 16:38] VITALS: BP_SYST 150
--- NOTE | 2019-06-09 18:35 | NUR ---
Note Pt sitting up in bed and eating his dinner. Pt's IVF's were saline locked per Dr Abbott's order. Dr Abbott on the floor assessing pt and writing orders at this time. Pt's 2 lumen PICC was flushed and capped at this time. Pt was checked on q1' and PRN all shift for needs and care. Pt was maintained with safety precautions all shift. No needs noted at this time. Call light within reach. Pt's bed in low position.
--- NOTE | 2019-06-09 19:15 | NUR ---
Opening notes Received report. Patient resting in bed. No signs of distress noted. Breathing even and unlabored. PICC line patent and intact, saline locked. No needs at this time. call light with the patient. Safety precautions in place.
[2019-06-09 20:00] VITALS: BP_SYST 157
--- NOTE | 2019-06-09 20:45 | NUR ---
Medications given. Educated the action and side effects of medications. Patient verbalized understanding and tolerated well. No signs of allergic reaction noted. No insulin coverage necessary. No other needs at this time. Call light with the patient. Safety precautions in place.
--- NOTE | 2019-06-09 23:00 | NUR ---
Resting Patient resting in bed. No signs of distress noted. Breathing even and unlabored. VSS. No needs. Call light with the patient. Safety precautions in place.
[2019-06-10 00:19] VITALS: BP_SYST 151
--- NOTE | 2019-06-10 02:00 | NUR ---
Sleeping No signs of distress noted. Breathing even and unlabored. Call light with the patient. Safety precautions in place.
--- NOTE | 2019-06-10 04:30 | NUR ---
Sleeping/IV ABX Patient sleeping. No signs of distress noted. Breathing even and unlabored. IV ABX hung. No signs of allergic reaction noted. Call light with the patient. Safety precautions in place.
[2019-06-10] MEDS: VANCOMYCIN HCL 1,000 MG in NS 250 ML IV SCH ×2 (04:40→11:56)
[2019-06-10] MEDS: INSULIN REGULAR, HUMAN 100 UNITS/ML, 10 ML VIAL (humuLIN R) SUBCUT PRN (06:16)
--- NOTE | 2019-06-10 06:20 | NUR ---
Closing notes Patient resting in bed. No signs of distress noted. Breathing even and unlabored. PICC line patent and intact, infusing abx. BS 156. Insulin given per sliding scale. Encouraged patient to eat breakfast. All needs met throughout the shift. Call light with the patient. Safety precautions in place. Will endorse care to day shift RN.
--- NOTE | 2019-06-10 07:27 | NUR ---
Opening Note received bedside SBAR report from assistant shift supervisor RN, patient resting in bed, no acute distress noted, patient denies any pain, educated patient on use of call light and asked to call for assistance, patient verbalized understanding, call light in reach, educated patient on use of bed alarm for patient safety, patient refusing bed alarm, bed in low and locked position, contact isolation precautions in place.
[2019-06-10 08:00] VITALS: BP_SYST 147
[2019-06-10] MEDS: metFORMIN HCL 500 MG TABLET PO SCH ×2 (08:19→17:09)
[2019-06-10] MEDS: CARVEDILOL 12.5 MG TABLET (COREG) PO SCH (08:19)
[2019-06-10] MEDS: SILVER SULFADIAZINE 1%, 25 GM TOPICAL CREAM (SSD) TP SCH (08:20)
[2019-06-10 09:49] LABS: BASOPHILS % (AUTO) 0.5 % (0.0-2.0); EOSINOPHILS # (AUTO) 0.1 K/uL (0.0-0.4); HEMATOCRIT 36.6 % (36-54); HEMOGLOBIN 12.7 g/dL (14.0-18.0); LYMPHOCYTES # (AUTO) 1.3 K/uL (1.0-5.5); LYMPHOCYTES % (AUTO) 30.1 % (20.5-51.5); MEAN CORPUSCULAR HEMOGLOBIN 30 pg (27-31); MEAN CORPUSCULAR HGB CONC 35 % (32-36); MEAN CORPUSCULAR VOLUME 87 fL (79.0-98.0); MONOCYTES # (AUTO) 0.4 K/uL (0.0-1.0); MONOCYTES % (AUTO) 10.1 % (1.7-9.3); NEUTROPHILS # (AUTO) 2.3 K/uL (1.8-7.7); NEUTROPHILS % (AUTO) 56.3 % (40.0-70.0); PLATELET COUNT (AUTO) 261 K/uL (130-430); RED BLOOD CELL COUNT(AUTO) 4.23 MIL/uL (4.2-6.2); RED CELL DISTRIBUTION WIDTH 12.6 % (9.0-15.0); WHITE BLOOD COUNT (AUTO) 4.2 K/uL (4.8-10.8)
[2019-06-10 09:58] LABS: CALCIUM 9.2 mg/dL (8.4-11.0); CREATININE 1.06 mg/dL (0.55-1.30); POTASSIUM 3.9 mmol/L (3.5-5.1)
--- NOTE | 2019-06-10 10:13 | NUR ---
RN Rounds patient resting in bed, respirations even and unlabored on room air, no acute distress noted, no additional needs at this time.
--- NOTE | 2019-06-10 10:47 | NUR ---
Discharge Planning: [facility] faxed pt referral to [facility] (f [phone] p [phone]), [facility] (f [phone] p [phone]), [facility] (f [phone] p [phone]), [facility] (f [phone] p [phone]) Addendum: 06/10/19 at 1514 by Cathi Bryan DP Accepted to [facility] (f [phone] p [phone]) Rm 106C, transportation arrange with [facility] ([phone]) Will Call nurse made aware, patient packet taken to nurse station. Addendum: 06/10/19 at 1533 by Cathi Bryan DP Per Kristina at [facility] [place] ([phone]) [facility]# [id number], [facility] #[id number]
--- NOTE | 2019-06-10 11:44 | NUR ---
Physician Rounds/Remove isolation Dr. Singleton at bedside examining patient, per Dr. Singleton patient no longer needs to be on contact isolation precautions.
[2019-06-10 12:47] VITALS: BP_SYST 144
--- NOTE | 2019-06-10 13:36 | NUR ---
RN Rounds patient resting in bed, no acute distress noted, patient denies any pain, no additional needs at this time.
[2019-06-10 14:33] VITALS: BP_SYST 148
--- NOTE | 2019-06-10 15:35 | NUR ---
Transport: Spoke with Meg at [facility]. Pickup arranged for 1730 hours.
--- NOTE | 2019-06-10 15:40 | NUR ---
Ambulating in gaytan patient ambulating in gaytan, steady gait noted, patient tolerating well.
[2019-06-10 16:13] VITALS: BP_SYST 148
--- NOTE | 2019-06-10 17:10 | NUR ---
RN Rounds early dinner tray provided, patient sitting up in bed eating dinner, tolerating well, patient denies any nausea, no acute distress noted, per patient he will notify family, patient does not want RN to notify family of transfer to SNF.
--- NOTE | 2019-06-10 17:14 | NUR ---
Called Report called [facility] , gave SBAR report to Jonelle.
--- NOTE | 2019-06-10 17:54 | NUR ---
Discharge provided patient with discharge packet and instructions for transfer to [facility], patient verbalized understanding, PICC line to left upper arm clean, dry, and intact, hospital ID band removed, plain ID band in place, no acute distress noted, all belongings sent with patient, report given to [facility], patient transferred via gurney by [facility] ambulance.
== END 2019-06-10 17:56 | DRG 344 ==
LOC: SED 17:22 → STU 18:43 → SMU 05-28 23:10
PROVIDERS: ADMIT Internal Medicine; ATTEND Internal Medicine
PROC: 02HV33Z Insertion of Infusion Device into Superior Vena Cava, Percutaneous Approach (ICD-10-PCS; principal; 2019-05-29)
DX: M86.8X8 Other osteomyelitis, other site (principal); N17.0 Acute kidney failure with tubular necrosis; E87.2 Acidosis; R65.10 Systemic inflammatory response syndrome (SIRS) of non-infectious origin without acute organ dysfunction; E87.1 Hypo-osmolality and hyponatremia; E11.65 Type 2 diabetes mellitus with hyperglycemia; E86.0 Dehydration; I10 Essential (primary) hypertension; F17.210 Nicotine dependence, cigarettes, uncomplicated; L03.011 Cellulitis of right finger; B95.8 Unspecified staphylococcus as the cause of diseases classified elsewhere; L02.511 Cutaneous abscess of right hand; F15.10 Other stimulant abuse, uncomplicated; F12.10 Cannabis abuse, uncomplicated; Z79.4 Long term (current) use of insulin
CPT/HCPCS: 36415; 71045; 73140-TC; 80048; 80053; 80202-TC; 80307; 81000-TC; 82550-TC; 82962; 83036; 83605; 85025; 85610-TC; 85730-TC; 87040-TC; 87081; 87086; 93005; 96365; 96372; 96375; 99291; C1751; C1769; G0378; J0360; J0696; J1815; J2543; J3370; J3490; J7030; J7040; J7050; J7060